=== PATIENT | male | born 1945 | race Caucasian/White ===

== ENCOUNTER 2018-11-03 14:50 | Inpatient (IN) | payer MEDICARE, BC ==
[~2018-11-03 14:50] MED LIST: ISOVUE-370 76%-LOCM 1 ML ONE; MD-Gastroview 120 ML BOT ONE
[2018-11-03 15:17] LABS: #Eosinphils 0.1 thou/uL (0.0-0.7); #Lymphocytes 2.2 thou/uL (1.20-3.40); #Monocytes 1.8 thou/uL (0.11-0.59); %Basophils 0.1 % (0.0-1.0); %Eosinophils 0.4 % (0.0-10.0); %Lymphocytes 13.5 % (21.0-51.0); %Monocytes 11.4 % (0.0-10.0); %Neutrophils 74.7 % (42.0-75.0); Hemoglobin 15.5 g/dL (14.0-18.0); Mean Corpuscular HGB CONC 32.9 g/dL (32.0-36.0); Mean Corpuscular Hemoglobin 29.7 pg (27.0-31.0); Mean Corpuscular Volume 90.1 fL (78.0-98.0); Mean Platelet Volume 7.6 fL (7.4-10.4); Platelet Count 222 thou/uL (130-400); RBC Distribution Width 12.1 % (11.5-14.5); Red Blood Cell (RBC) Count 5.22 mill/uL (4.70-6.10); White Blood Cell (WBC) Count 16.1 thou/uL (4.8-10.8)
[2018-11-03 15:33] LABS: ALT (SGPT) 30 U/L (8-55); AST (SGOT) 22 U/L (5-34); Alkaline Phosphatase 82 U/L (40-150); Anion Gap 16 mmol/L (10-20); BUN (Urea Nitrogen) 18 mg/dL (8.4-25.7); Bilirubin, Total 0.9 mg/dL (0.2-1.2); Calc. Creatinine Clearance 0 mL/min (70-130); Calcium 9.5 mg/dL (7.8-10.44); Carbon Dioxide 29 mmol/L (23-31); Chloride 92 mmol/L (98-107); Estimated GFR-MDRD 82; Globulin 3.6 g/dL (2.4-3.5); Glucose 123 mg/dL (83-110); Potassium 4.1 mmol/L (3.5-5.1); Protein, Total 7.6 g/dL (5.8-8.1); Sodium 133 mmol/L (136-145)
[2018-11-03] MEDS ORDERED: Ketorolac Tromethamine 30 MG/ML VIAL ONE (17:25)
[2018-11-03] MEDS ORDERED: Ondansetron PF 4 MG/2 ML Vial ONE (17:25)
--- NOTE | 2018-11-03 18:40 | CT ---
CONTRAST ENHANCED CT IMAGES ABDOMEN AND PELVIS 11/03/18 HISTORY: Pain. Contrast enhanced CT images of the abdomen and pelvis is obtained after administration of IV contrast . The lung bases are unremarkable. Calcifications seen in the right coronary artery. No evidence of free intraperitoneal air seen. The liver and spleen are unremarkable. The gallbladder and pancreas are unremarkable. There is a right supraumbilical anterior abdominal wall hernia with h erniation of portions of the transverse colon through the defect. The colon distal to this anterior h ernia is decompressed while proximal to it it is dilated and contains fluid. Findings concerning for transverse colonic entrapment. The small bowel appears to be shortened and this finding is compatible with surgical anastomosis and partial resection of the small bowel. There is some moderate proximal small bowel dilatation. There is extensive descending and sigmoid colonic diverticulosis. The patient has had aortobifemoral graft which is patent. The akutan vessel is calcified. Calcificati ons also seen in the celiac and superior mesenteric arteries. Flow is seen in both renal arteries. Nonobstructing calculi seen in the mid pole of the right kidney and lower pole of the left kidney. IMPRESSION: Two areas of anterior abdominal wall defect is seen with hernia. The more upper margin demonstrates herniation of portion of the transverse colon through the hernial defect with proximal small bowel di stention. The more distal aspect of the colon distal to the hernial defect and bowel herniation is d ecompressed. POS: NORRIS
--- NOTE | 2018-11-03 20:53 | RAD ---
GASTROGRAFIN ENEMA: 11/03/18 HISTORY: Evaluate for bowel obstruction. We were asked to perform emergent afterhours gastrografin enema to evaluate for colonic obstruction. RADIATION DOSIMETRY: 1.4 minutes of fluoroscopy. AK of 120 mGy. A balloon tip catheter was placed in the patient's rectum. A solution of gastrografin dilated with wa ter was introduced using a low pressure gravity drip. The rectum and sigmoid colon was filled. The descending colon was filled as was the splenic flexure. Contrast filled all the way to the mid transverse colon and no further. Repeated efforts were made to get the contrast to flow proximal; however, as seen on the patient's CT, there is anterior abdominal wall herniation. Contrast does not flow proximal to this hernial defect. The patient began to compla in of abdominal pain and contrast was noted to leak around the balloon. At this point, the exam was d iscontinued. Numerous colonic diverticula are present in the descending colon and sigmoid colon. IMPRESSION: Transverse colon herniation and obstruction in the mid transverse colonic region. POS: NORRIS
--- NOTE | 2018-11-03 22:01 | CON ---
DATE OF CONSULTATION: 11/03/2018 REQUESTING PHYSICIAN: Dr. Linn Braun. HISTORY OF PRESENT ILLNESS: This is a 72-year-old man with history of severe peripheral vascular disease and previous abdominal operations. The patient presented to the emergency department with a 4-day history of no bowel movement and 2-day history of no flatus. The patient reports moderate abdominal distention. He thinks he had worked hard chopping down trees over the last 1 week as a result. He thinks that his long-standing abdominal wall hernias may have worsened. At the time of my evaluation, he denies any abdominal pain. He denies any nausea or vomiting. The patient denies any alternating episodes of constipation and diarrhea. He denies any hematochezia or melena. He denies any unexplained weight loss. PAST MEDICAL HISTORY: Significant for essential hypertension, hyperlipidemia, coronary artery disease with ejection fraction of approximately 30%. Other pertinent past medical history includes abdominal wall hernia for almost 24 years. PAST SURGICAL HISTORY: Pertinent for aortofemoral bypass 22 years ago. He is also 2 years status post left carotid endarterectomy. FAMILY HISTORY: Noncontributory for this patient's age. ALLERGIES: STATINS. REVIEW OF SYSTEMS: Ten-point review of systems essentially unremarkable except as stated in past medical history and chief complaint. Note, the patient denies having had any previous colonoscopies. PHYSICAL EXAMINATION: GENERAL: This reveals a 72-year-old normally developed man, who is otherwise coherent, interactive and appears stated age. The patient is alert and oriented x3. He appears to be in no acute distress at time of my evaluation. HEENT: Reveals normocephalic and atraumatic. Pupils equal, round, reactive to light and accommodation. Extraocular muscles are intact bilaterally. No sclerae icterus present. Oral mucosa is pink and moist. No lesions are noted. NECK: Supple. No palpable lymphadenopathy or thyromegaly present. HEART: Reveals regular rate and rhythm. LUNGS: Clear to auscultation bilaterally. Breathing, regular and nonlabored. ABDOMEN: Soft and obese. He has multiple abdominal wall defects. The larger defect is in the superior pole left lateral to midline. Palpable, but reducible herniation is present with no tenderness associated with this. Liver and spleen are nonpalpable below costal margin. He has irregularly healed midline incisional scar consistent with previous history of the aortobifemoral bypass. NEUROLOGIC: Reveals no focal deficits present. LABORATORY FINDINGS: Today includes a CBC with 16,100 white blood cells, hemoglobin and hematocrit are 15.5 and 47.0 respectively. Platelet count is 222,000. Metabolic profile; sodium 133, potassium is 4.1, chloride is 92, BUN is 18, creatinine is 0.91, glucose is 123, total bilirubin is 0.9, AST and ALT 22 and 30 respectively. Albumin is normal at 4.0. I have personally reviewed the CT scan of the abdomen and pelvis with IV, but no oral contrast. This is remarkable for extensive diverticulosis coli involving the descending and sigmoid colon. Also noted to anterior abdominal wall defects, the larger of which contains a portion of the transverse colon to the left of midline superiorly with no evidence of complete obstruction. Of interest nevertheless is gas in the rectum. The patient does have multiple distended loops of small bowel with no transition zone noted. IMPRESSIONS: Chronic abdominal wall hernia with likely partial large bowel obstruction, more than likely secondary to chronic diverticular stricture versus neoplasm. RECOMMENDATIONS: 1. We will obtain a Gastrografin enema to better define the anatomy of the obstruction. 2. There is no acute surgical indication for this patient at this time. 3. General Surgery will follow along and make further recommendations as necessary. 4. Above findings and recommendation have been discussed with the patient and his family at bedside. Thank you again, Dr. Braun for allowing me the opportunity to participate in the care of this patient. Job ID: [id number]
[2018-11-04] MEDS: Ketorolac Tromethamine 30 MG/ML VIAL IVP PRN ×2 (00:44→05:46)
[2018-11-04] MEDS ORDERED: Ondansetron PF 4 MG/2 ML Vial IVP PRN (10:10)
[2018-11-04] MEDS ORDERED: Acetaminophen 325 MG TAB PO PRN (10:10)
[2018-11-04] MEDS ORDERED: hydrALAZINE 20 MG/ML VIAL SLOW IVP PRN (10:10)
[2018-11-04] MEDS ORDERED: Ondansetron ODT 4 MG TAB PO PRN (10:10)
[2018-11-04] MEDS ORDERED: Morphine 2 MG/ML SYRINGE SLOW IVP PRN (10:14)
[2018-11-04] MEDS ORDERED: Sodium Chloride 0.9% 1,000 ML IV SCH (10:15)
[2018-11-04] MEDS: Morphine 4 MG/ML VIAL SLOW IVP PRN ×2 (10:17→14:25)
[2018-11-04] MEDS ORDERED: Morphine 4 MG/ML VIAL SLOW IVP SCH (10:30)
[2018-11-04] MEDS ORDERED: Rocuronium Bromide 10 MG/ML (10ML VIAL) ONE (13:13)
[2018-11-04] MEDS ORDERED: PHENYLEPHRINE-NS 100 MCG/ML 10 ML SYRINGE ONE (13:13)
[2018-11-04] MEDS ORDERED: Vecuronium 10 MG VIAL ONE (13:13)
[2018-11-04] MEDS ORDERED: PROPOFOL 200 MG/20 ML VIAL ONE (13:13)
[2018-11-04] MEDS ORDERED: Lidocaine 1% PF 5 ML VIAL ONE (13:13)
[2018-11-04] MEDS ORDERED: Ketorolac Tromethamine 30 MG/ML VIAL ONE (16:12)
--- NOTE | 2018-11-04 17:01 | HP ---
PRIMARY CARE PHYSICIAN: The patient's does not have a primary care physician. CHIEF COMPLAINT: Abdominal pain and bloating. 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 He says that he was in his usual state of health until about a week ago. He says on last Tuesday every time he ate, he would notice bloating and an increased amount of gas. This would go on for several hours and then it would get better. However, as the days went on, his symptoms worsen and he would try take Ex-Lax without any improvement, then basically he stopped eating almost altogether. He says he also noted some abdominal pain, which would come and go. It would be across his abdomen in the lower part and then radiating to the upper part of his abdomen. He says sometimes it can be as little as 1/10, but then up to 8 to 9/10. He had some nausea, but no vomiting, and as a result of the worsening pain, he came to the ER for evaluation. He had a CT scan of the abdomen, which showed some changes of possible hernia and within the transverse colon with possible obstruction. This is the reason he is being admitted. He says that he believes he just strained the area around this hernia because he had cut down a tree and chopped it up and loaded it up on a truck on the day prior to his symptoms starting. He says his last bowel movement was on Tuesday. It was formed hard stool. There was no blood and he denies having any vomiting. He denies any chest pain or difficulty breathing. He denies any PND or orthopnea. He says he has relatively good exercise tolerance. REVIEW OF SYSTEMS: All systems were reviewed and are negative except for that mentioned in the history of present illness. PAST MEDICAL HISTORY: Significant for hypertension, hyperlipidemia, coronary artery disease. He is status post [place] and history of chronic systolic heart failure. PAST SURGICAL HISTORY: He has had a left carotid endarterectomy as well as an aortofemoral bypass. ALLERGIES: EGG YOLKS WELL SIMVASTATIN, BUT HE SAYS HE CAN TAKE OTHER STATINS. FAMILY HISTORY: Significant for diabetes and coronary artery disease in his father. SOCIAL HISTORY: He is a nonsmoker and nondrinker. Code status is full code. CURRENT MEDICATIONS: 1. Carvedilol 25 mg twice a day. 2. Irbesartan 300 mg daily. 3. Aspirin 325 mg daily. 4. Hydrochlorothiazide 12.5 mg daily. 5. Crestor 20 mg daily. PHYSICAL EXAMINATION: GENERAL: He is alert and oriented. He appears to be in no acute distress. He is well developed and well nourished. VITAL SIGNS: Blood pressure was 103/63, heart rate 68, respiratory rate of 16, temperature is 99, and O2 saturation is 92% on room air. HEENT: Pupils are equal, round, and reactive. Extraocular muscles are intact. His sclerae anicteric. Throat, no erythema, no exudates. NECK: No adenopathy. No bruits. LUNGS: Clear to auscultation. There is no wheezing or rales. No rhonchi. CARDIOVASCULAR: He has a normal S1 and S2. I did not appreciate an S3 or S4. No murmurs, clicks or rubs. ABDOMEN: Soft. He does have some lower abdominal tenderness as well as some tenderness around the hernia site. The hernia is easily reducible. He has positive bowel sounds. No rebound or guarding. EXTREMITIES: There is no clubbing or cyanosis. No edema. NEUROLOGIC: Cranial nerves 2 through 12 are grossly intact. His muscle strength is 5/5 in both his upper and lower extremities. SKIN AND INTEGUMENT: There are no skin changes. No rash. LABORATORY DATA: Sodium is 133, potassium 4.1, chloride is 92, CO2 is 29, BUN of 18, creatinine 0.91, glucose is 123. White blood cell count 16.1, hemoglobin 15.5, hematocrit is 47.0, and platelet count was 222. ASSESSMENT: This is a gentleman, who presents with a possible bowel obstruction in the transverse colon. He is being placed in observation. He will be made n.p.o. General Surgery has already been consulted, and we will place him on IV fluids. Place him on medication for pain. 1. For history of hypertension, we will place him on p.r.n. medications for hypertension until he has been cleared for oral intake. 2. Coronary artery disease. This appears to be clinically stable. We will likely need to get a baseline EKG if he has not had this done already in the ER, and restart his home medications when able. Job ID: [id number]
[2018-11-04] MEDS ORDERED: Morphine 4 MG/ML VIAL ONE (18:25)
[2018-11-04] MEDS ORDERED: cefOXitin 2 GM in Sodium Chloride 0.9% 100 ML IVPB SCH (19:30)
[2018-11-04] MEDS ORDERED: Fentanyl 100 MCG/2 ML VIAL ONE (21:06)
[2018-11-04] MEDS: Famotidine 20 MG TAB PO SCH (21:15)
--- NOTE | 2018-11-04 21:46 | CON ---
DATE OF CONSULTATION: HISTORY: Esvin Scott is a 72-year-old white male, who is a longstanding patient of Dr. Anderson. In 02/1997, while he was visiting in [place], he had an inferior myocardial infarction. He underwent cardiac catheterization at [facility]. Both iliacs were totally occluded and the procedure had to be performed via right brachial artery. He was found to have luminal irregularities in the LAD and in the circumflex. The right coronary artery had an 80% stenosis with MARTÍNEZ-2.5-3.0 flow. PTCA was not performed due to good MARTÍNEZ flow and there being no femoral access. Ejection fraction was 50% with inferior wall hypokinesis. Prior to discharge, he underwent a submaximal exercise test, exercised for 3 minutes. He then returned to [facility] in 04/1997. He underwent aortobifemoral bypass with reimplantation of the internal mammary artery. There was a fall in his ejection fraction to below 35% and thought was given to ICD placement. He then underwent electrophysiology study by Dr. Joes Correa. This revealed normal sinus node, AV node, and His-Purkinje system function. He had no inducible supraventricular tachycardia nor inducible sustained monomorphic ventricular tachycardia. Subsequently, his ejection fraction has improved to 35% to 40%, and that was on his last echo in 04/2017. He also underwent left carotid endarterectomy in 09/[address] Garcia. Mr. Scott denies any chest discomfort or shortness of breath. He can walk on a treadmill for up to 1 mile. 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 He thinks that this activity worsened his abdominal hernias because he started having abdominal pain. He did not had any bowel movements, but denies any nausea or vomiting. It is felt that he needs to undergo surgical repair of his hernias. He denies any PND, orthopnea, or leg edema. PAST MEDICAL HISTORY: 1. Hypertension. 2. Hypercholesterolemia. 3. Ischemic cardiomyopathy. OPERATIONS: 1. Aortobifemoral bypass with reimplantation of the KARUNA. 2. Left carotid endarterectomy. OUTPATIENT MEDICATIONS: Include; 1. Aspirin 81 daily. 2. Carvedilol 25 mg b.i.d. 3. Vitamin D3. 4. Hydrochlorothiazide 12.5 daily. 5. Avapro 300 mg nightly. 6. Crestor 20 mg nightly. 7. CoQ10 of 100 mg daily. 8. Multivitamin. ALLERGIES: STATINS. SOCIAL HISTORY: He smoked 1 to 1-1/2 packs per day, but stopped in 1996 at the time of his myocardial infarction. He rarely drinks. FAMILY HISTORY: Father had coronary artery disease. REVIEW OF SYSTEMS: A 10-point review of systems is otherwise unremarkable. PHYSICAL EXAMINATION: VITAL SIGNS: Blood pressure 97/56, pulse of 69. HEENT: PERRL. NECK: Supple. CHEST: Clear. CARDIAC: S1 and S2 are normal without any S3, S4, or murmurs. ABDOMEN: Normal bowel sounds with mild diffuse tenderness. EXTREMITIES: No clubbing, cyanosis, or edema. NEUROLOGIC: Grossly intact. SKIN: Warm and dry. LABORATORY DATA: EKG revealed normal sinus rhythm with inferior wall infarction. Hemoglobin 15.5, hematocrit 47.0, white count 16,100. Sodium 133, potassium 4.1 , chloride 92, carbon dioxide 29, BUN 18, and creatinine 0.91. ASSESSMENT: 1. Abdominal wall hernias with partial large-bowel obstruction. 2. History of inferior myocardial infarction in 1996. 3. Peripheral vascular disease - status post aortobifemoral bypass in 1996 and left carotid endarterectomy in 2017. 4. Hypercholesterolemia. 5. Hypertension. 6. Former smoker. 7. Positive family history. PLAN: Mr. Scott appears to be stable from a cardiac standpoint at this time. He is able to walk 1 mile without symptoms. With his coronary artery disease, he certainly is at increased risks with general anesthesia; however, I feel that these risks were very acceptable, especially with ongoing abdominal pain and large- bowel obstruction. We will follow the patient with you. Job ID: [id number] [facility]
[2018-11-04] MEDS ORDERED: Bupivacaine/Epinephrine 0.25% 30 ML VIAL ONE (21:58)
[2018-11-04] MEDS ORDERED: Norepinephrine 8 MG/0.9% NS 250 ML ONE (22:57)
[2018-11-04] MEDS ORDERED: Albumin 5% 500 ML ONE (23:05)
[2018-11-05] MEDS ORDERED: Dextrose 50% Abboject 50 ML SYRINGE ONE (00:28)
[2018-11-05 03:35] LABS: Actual Bicarbonate (HCO3a) 21.3 mEq/L (22-28); Base Excess (BEa) -2.7 mEq/L (-2.0 to +3.0); CO2 Tension 34.2 mmHg (35.0-45.0); Calcium, Ionized 1.02 mmol/L (1.12-1.30); Carboxyhemoglobin (COHb) 0.9 gm% (0.0-3.0); Hemoglobin (Hb) 12.2 g/dL (14.0-18.0); O2 Tension (PaO2) 148.7 mmHg (> 70.0); Potassium - ABG Lab 4.32 mmol/L (3.70-5.30); pH, Arterial 7.41 (7.35-7.45)
[2018-11-05 03:37] LABS: Puncture Site ALINE
[2018-11-05] MEDS ORDERED: Propofol 1,000 MG/100 ML VIAL IV ONE (03:41)
[2018-11-05] MEDS ORDERED: Ventilator Sedation Protocol 1 EACH FS SCH (03:45)
[2018-11-05] MEDS: Lactated Ringer's 1,000 ML IV SCH ×3 (03:49→23:09)
--- NOTE | 2018-11-05 03:53 | OP ---
DATE OF PROCEDURE: 11/05/2018 PREOPERATIVE DIAGNOSIS: Incarcerated incisional hernia with large bowel obstruction. POSTOPERATIVE DIAGNOSES: 1. Incarcerated incisional hernia with large bowel obstruction. 2. Necrotic transverse colon and cecum. 3. Extensive intraabdominal adhesions. TEST PERFORMED: 1. Exploratory laparotomy. 2. Extensive adhesiolysis. 3. Right hemicolectomy with primary anastomosis. 4. Repair of incisional hernia. 5. Placement of feeding nasojejunal tube. 6. Placement of a triple-lumen left subclavian central venous catheter. ANESTHESIA: General endotracheal. ESTIMATED BLOOD LOSS: 200 mL. FLUIDS: Given 4000 mL crystalloids and 500 mL of 5% albumin. COUNTS: Sponge and instrument counts were verified as correct x2. COMPLICATIONS: None apparent at the time of operation. INDICATIONS FOR OPERATION: A 72-year-old man with previous history of aortobifemoral bypass many years ago, presented with abdominal pain, inability to have bowel movement and worsening abdominal distention. Clinical and radiographic examination were consistent with acute incarcerated ventral incisional hernia with entrapment of segment of the transverse colon. Patient was brought to the operating room for exploration and repair of said hernia. Findings are consistent with extensive intraabdominal adhesions, threaded transverse colon with patchy necrosis as well as ischemic markedly dilated cecum. DESCRIPTION OF PROCEDURE: Informed consent obtained from the patient. He was brought to the operating room and placed in supine position. Following general anesthesia, a Talbot catheter was inserted and placed to bedside drain. Nasogastric tube inserted and placed to wall suction. The left chest wall sterilely prepped and draped in usual fashion. The left subclavian vein was cannulated with an 18-gauge introducer needle returning dark venous blood. Guidewire was passed through the needle and advanced into the left subclavian vein without resistance. Needle was withdrawn over the guidewire. A stab incision was made adjacent to the guidewire using 11 scalpel. Dilator was passed over the guidewire dilating the subcutaneous tissues. The dilator was removed and replaced with a triple-lumen central venous catheter which was advanced over the guidewire and placed in the left subclavian vein without resistance and stopping at the 18 cm brian. Guidewire was removed. Dark venous blood was aspirated from all three ports which were individually flushed with saline. The catheter was secured to anterior chest wall using 3-0 silk suture at two points. Biopatch and sterile dressings was applied. Attention was then directed to the abdomen, which was sterilely prepped and draped in usual fashion. Midline incision was made using #10 scalpel. Incision was carried through subcutaneous tissues maintaining hemostasis using cautery. The large hernia in the left of midline was noted and dissected free from angoon fascia circumferentially. The hernia sac was opened and an incarcerated transverse colon was meticulously taken down. There is a 2 x 1 cm area of patch necrosis in this segment. We were then able to continue our dissection encountering extensive intraabdominal adhesions which were meticulously taken down using Metzenbaum scissors. The small bowel was then run from ligament of Treitz down to terminal ileum. A markedly dilated and ischemic-appearing cecum was encountered. The ascending colon remains markedly dilated to just proximal to the incarcerated transverse colonic segment. The remainder of the transverse colon distal to this appeared viable. I palpated the remainder of the colon from the splenic flexure down to the descending, sigmoid colon, and rectum. No other pathology is identified. I decided to proceed with right hemicolectomy. To achieve this, a rent was created in the mesentery of the distal ileum approximately 6 cm from the ileocecal junction. This was completed using hemostats. Through this rent, a KETAN stapler was introduced and the bowel was divided. Mesenteric rent was also created approximately 6 cm distal to the incarcerated transverse colon. Through the defect, a KETAN stapler was introduced and the bowel was divided here as well. The right colon was then mobilized along the white line of Toldt, taken down the hepatic flexure. Care taken to avoid injury to underlying duodenum as the colon was mobilized medially. Mesentery of the right colonic specimen was then serially divided using LigaSure device with good hemostasis. The specimen was passed off the operative field followed by transmission to pathology. Liver is palpated, free of any abnormalities. Markedly distended gallbladder is devoid of stones. The spleen and hepatic noted in the usual anatomic location. The previous nasogastric tube was palpated within the gastric lumen. At this juncture, a feeding nasojejunal tube was inserted by Anesthesia, the tip of which was palpated by myself within the gastric lumen. I manipulated tip of this catheter into proximal small bowel without resistance. The abdominal cavity was then copiously irrigated clear with saline. I decided to proceed with the reestablishment of bowel continuity. The staple end of the distal ileum and left colon were approximated in a [id number] antimesenteric border using interrupted sutures of 3-0 silk. Enterotomies were made at both apices, through which free ends of KETAN stapler were introduced and functional end-to-end but anatomic [id number] ileocolostomy was perfected. The common enterotomies were closed using KETAN stapler. Resultant mesenteric defect closed using a running stitch of 2-0 Vicryl. The abdominal cavity was again re-irrigated until it was clear. At this juncture, all sponges and instruments were reported as correct x2. I placed a sheet of Seprafilm in the deep pelvis prior to returning the small bowel to normal anatomic location. A second sheet of Seprafilm was placed over the remainder of the small bowel and omentum is drawn over this. I then turned my attention to the defective edges of the patient's angoon fascia. This was excised circumferentially down to a viable fascia. The hernia subcutaneous pocket was copiously irrigated clear with saline, debriding nonviable subcutaneous fat as they were encountered. Given the patient was concerned about mesh repair and in addition to the fact that colonic resection had taken place, I elected to repair the ventral incisional hernia primarily avoiding the use of mesh. At this juncture, the angoon fascia was approximated in the midline using a running stitch of #1 single stranded PDS. Subcutaneous tissue was irrigated clear with saline solution noting good hemostasis in place. I introduced a 10 flat Claudio-Keen drain into the large subcutaneous pocket created by the previous hernia. The drain was allowed to exit the anterior abdominal wall through a separate stab incision. The drain was secured to anterior abdominal wall using 2-0 silk suture. Subcutaneous tissue was approximated at midline using interrupted sutures of 2-0 Vicryl. Skin was closed using val. Sterile dressings were applied. Patient tolerated the operation without any apparent complication and was returned to recovery room in satisfactory condition. Job ID: [id number] [facility]
[2018-11-05] MEDS ORDERED: fentaNYL Citrate/PF 2,000 MCG in Sodium Chloride 0.9% 60 ML IV SCH (04:31)
[2018-11-05] MEDS ORDERED: Fentanyl BOLUS 250 ML IVPB PRN (04:31)
[2018-11-05] MEDS ORDERED: DISCONTINUE PREVIOUS NARCOTIC PAIN MEDICATIONS AND BENZODIAZEPINES FS SCH (04:31)
[2018-11-05] MEDS ORDERED: Propofol 1,000 MG/100 ML VIAL IV PRN (04:31)
[2018-11-05] MEDS ORDERED: Propofol BOLUS 1,000 MG/100 ML VIAL IV PRN (04:31)
[2018-11-05] MEDS ORDERED: Lorazepam 2 MG/ML VIAL SLOW IVP PRN (04:31)
[2018-11-05] MEDS ORDERED: Morphine 2 MG/ML SYRINGE SLOW IVP PRN (04:31)
[2018-11-05 05:28] LABS: #Lymphocytes 1.1 thou/uL (1.20-3.40); #Monocytes 0.9 thou/uL (0.11-0.59); #Neutrophils 16.6 thou/uL (1.40-6.50); %Eosinophils 0.1 % (0.0-10.0); %Lymphocytes 5.7 % (21.0-51.0); %Neutrophils 89.3 % (42.0-75.0); Hemoglobin 11.6 g/dL (14.0-18.0); Mean Corpuscular Hemoglobin 29.7 pg (27.0-31.0); Mean Corpuscular Volume 89.8 fL (78.0-98.0); Mean Platelet Volume 7.6 fL (7.4-10.4); Platelet Count 155 thou/uL (130-400); Red Blood Cell (RBC) Count 3.91 mill/uL (4.70-6.10); White Blood Cell (WBC) Count 18.6 thou/uL (4.8-10.8)
[2018-11-05] MEDS: Piperacillin/Tazobactam 3.375 GM in Sodium Chloride 0.9% 100 ML IVPB SCH ×4 (05:29→23:10)
[2018-11-05 05:42] LABS: Anion Gap 10 mmol/L (10-20); BUN (Urea Nitrogen) 28 mg/dL (8.4-25.7); Calc. Creatinine Clearance 93 mL/min (70-130); Calcium 7.8 mg/dL (7.8-10.44); Carbon Dioxide 26 mmol/L (23-31); Chloride 100 mmol/L (98-107); Estimated GFR-MDRD Greater than 90; Glucose 162 mg/dL (83-110); Potassium 4.2 mmol/L (3.5-5.1); Sodium 132 mmol/L (136-145)
[2018-11-05] MEDS: Enoxaparin Sodium 40 MG/0.4 ML SYRINGE SC SCH (07:40)
[2018-11-05] MEDS: Famotidine 20 MG TAB PO SCH ×2 (07:41→20:16)
--- NOTE | 2018-11-05 08:45 | RAD ---
Exam: Chest one view HISTORY:Evaluate feeding tube placement FINDINGS: Lungs: Bilateral patchy perihilar opacities Dobbhoff feeding tube placement evaluation feeding tube and enteric catheter traverse to the upper ab domen, below field of view Cardiac silhouette:Accentuated by portable technique Pulmonary vessels: Normal Pleural Spaces: Clear Pneumothorax: None Left subclavian venous catheter is present with tip overlying SVC. Osseous abnormalities: None of acuity. IMPRESSION: Enteric catheters traversing to the upper abdomen, below field of view
[2018-11-05] MEDS ORDERED: Enoxaparin Sodium 30 MG/0.3 ML SYRINGE SC SCH (09:00)
--- NOTE | 2018-11-05 09:53 | RAD ---
FRONTAL VIEW ABDOMEN SERIES KUB TWO VIEWS PROVIDED: INDICATION: Dobbhoff feeding tube placement evaluation. FINDINGS: There is an enteric catheter with tip traversing to the left lateral abdomen. Additional catheter tr averses to the right upper abdomen. On the more cephalad view of the abdomen, there is a linear radi opaque density overlying the central low abdomen, not redemonstrated on the lower abdominal view. Th is could have related to overlying artifact. Correlate clinically. IMPRESSION: Two catheters are seen, a Dobbhoff with metallic stylette traversing to the left lateral abdomen and the additional enteric catheter traverses through the right upper quadrant. POS: AUTUMNK
--- NOTE | 2018-11-05 10:58 | PDOC.PN ---
- Subjective Encounter Start Date: 11/05/18 Encounter Start Time: 10:57 Mr. Scott was seen today in follow-up of Bowel Obstruction. He is post exploratory lap and lysis of adhesions, with right hemicolectomy. He remains intubated. He is awake and alert. - Objective Resuscitation Status - Order Detail: 11/04/18 09:59 Resuscitation Status Routine Resuscitation Status: FULL: Full Resuscitation MAR Reviewed: Yes Vital Signs & Weight: Vital Signs (12 hours) Temp Pulse Resp BP Pulse Ox 11/05/18 10:31 71 147/56 H 11/05/18 10:25 68 138/61 11/05/18 09:06 14 11/05/18 07:00 98.9 F 11/05/18 06:58 14 99 11/05/18 06:15 64 131/47 L 11/05/18 06:00 14 11/05/18 04:00 14 11/05/18 03:52 99 11/05/18 03:38 65 11/05/18 03:07 14 11/05/18 03:00 98.3 F Weight Weight 171 lb 15.369 oz Most Recent Monitor Data Heart Rate from ECG 70 NIBP 138/61 NIBP BP-Mean 86 Respiration from ECG 15 SpO2 100 I&O: 11/04/18 11/05/18 11/06/18 06:59 06:59 06:59 Intake Total 10 715.4 100 Output Total 560 250 Balance 10 155.4 -150 Result Diagrams: 11/05/18 05:10 11/05/18 05:10 Additional Labs: Accuchecks 11/05/18 00:27 POC Glucose 62 L Phys Exam - Physical Examination HEENT: PERRLA, sclera anicteric Respiratory: no wheezing, no rales, no rhonchi, clear to auscultation bilateral Cardiovascular: RRR, no significant murmur, no rub Gastrointestinal: soft + mildly distended, bowel sounds are diminished Musculoskeletal: pulses present trace pedal edema Dx/Plan (1) Bowel obstruction Code(s): K56.609 - UNSP INTESTNL OBST, UNSP TO PARTIAL VERSUS COMPLETE OBST Status: Acute (2) Incarcerated hernia Code(s): K46.0 - UNSP ABDOMINAL HERNIA WITH OBSTRUCTION, WITHOUT GANGRENE Status: Acute (3) Hypertension Code(s): I10 - ESSENTIAL (PRIMARY) HYPERTENSION Status: Chronic (4) Coronary artery disease Code(s): I25.10 - ATHSCL HEART DISEASE OF [place] CORONARY ARTERY W/O ANG PCTRS Status: Chronic - Plan * Incarcerated Hernia with bowel obstruction- he is s/p exploratory lap with lysis of adhesions, and right rachel-colectomy * Continue Zosyn * Vent wean per Surgery * HTN- blood pressure is currently controlled * CAD- stable- Cardiology following.
[2018-11-05] MEDS ORDERED: traMADol HCl 50 MG TAB PO PRN (11:39)
[2018-11-05] MEDS ORDERED: traMADol HCl 50 MG TAB PO SCH (11:45)
[2018-11-05] MEDS ORDERED: Ibuprofen 600 MG TAB PO SCH (11:45)
--- NOTE | 2018-11-05 12:33 | RAD ---
XR Abdomen 1 View/KUB 1 view abdomen series CLINICAL INDICATION: NG tube placement evaluation. FINDINGS: Redemonstration of enteric catheters, with metallic stylette at the left lateral abdomen, and additio nal catheter traversing to the medial left upper quadrant. There is additional catheter tubing overlying the left lower quadrant. Correlate clinically. IMPRESSION: 1. Two enteric catheters, one traversing to the lateral left upper abdomen, and the other residing a t the medial left upper abdomen. 2. There is additional catheter tubing overlying the left lower quadrant.. Transcribed Date/Time: 11/05/2018 1:01 PM
[2018-11-05] MEDS: Ketorolac Tromethamine 30 MG/ML VIAL IVP PRN ×2 (12:57→19:15)
[2018-11-05] MEDS: Acetaminophen 500 MG TAB PO SCH ×3 (13:01→23:09)
[2018-11-05] MEDS: Metoprolol Tartrate 5 MG/5 ML VIAL IVP SCH ×2 (15:54→22:21)
[2018-11-05] MEDS ORDERED: Digoxin 0.5 MG/2 ML AMP ONE (16:49)
[2018-11-05] MEDS ORDERED: Digoxin 0.5 MG/2 ML AMP SLOW IVP SCH ×2 (17:15→21:00)
[2018-11-05] MEDS ORDERED: Hydrocortisone Sod Succ/PF 100 mg/2 ml Vial IVP SCH (20:00)
[2018-11-05] MEDS ORDERED: Sodium Chloride 0.9% 500 ML IVPB SCH (21:45)
[2018-11-06] MEDS ORDERED: Sodium Chloride 0.9% 500 ML IV SCH ×2 (01:15→08:45)
[2018-11-06] MEDS: Hydrocortisone Sod Succ/PF 100 mg/2 ml Vial IVP SCH ×4 (01:17→20:07)
[2018-11-06] MEDS: Metoprolol Tartrate 5 MG/5 ML VIAL IVP SCH ×4 (05:02→21:44)
[2018-11-06] MEDS ORDERED: Hydrochlorothiazide 25 MG TAB PO SCH (05:15)
[2018-11-06] MEDS: Ketorolac Tromethamine 30 MG/ML VIAL IVP PRN ×3 (05:19→20:10)
[2018-11-06] MEDS: Piperacillin/Tazobactam 3.375 GM in Sodium Chloride 0.9% 100 ML IVPB SCH ×3 (05:19→17:58)
[2018-11-06] MEDS: Acetaminophen 500 MG TAB PO SCH ×3 (05:20→17:58)
[2018-11-06 05:38] LABS: Phosphorus 2.9 mg/dL (2.3-4.7)
[2018-11-06 08:17] LABS: Hemoglobin 11.4 g/dL (14.0-18.0); Mean Corpuscular HGB CONC 32.6 g/dL (32.0-36.0); Mean Corpuscular Hemoglobin 29.8 pg (27.0-31.0); Mean Corpuscular Volume 91.5 fL (78.0-98.0); Mean Platelet Volume 7.9 fL (7.4-10.4); Platelet Count 171 thou/uL (130-400); RBC Distribution Width 12.1 % (11.5-14.5); Red Blood Cell (RBC) Count 3.82 mill/uL (4.70-6.10); White Blood Cell (WBC) Count 17.4 thou/uL (4.8-10.8)
[2018-11-06 08:23] LABS: Anion Gap 9 mmol/L (10-20); BUN (Urea Nitrogen) 23 mg/dL (8.4-25.7); Calc. Creatinine Clearance 97 mL/min (70-130); Calcium 7.8 mg/dL (7.8-10.44); Carbon Dioxide 29 mmol/L (23-31); Chloride 103 mmol/L (98-107); Estimated GFR-MDRD Greater than 90; Glucose 138 mg/dL (83-110); Sodium 137 mmol/L (136-145)
--- NOTE | 2018-11-06 08:42 | PDOC.PN ---
- Subjective Encounter Start Date: 11/06/18 Encounter Start Time: 08:40 Mr. Scott was seen today in follow-up of Bowel Obstruction. He says he has some abdominal pain, but it is manageable. he denies chest pain or shortness of breath. - Objective Resuscitation Status - Order Detail: 11/04/18 09:59 Resuscitation Status Routine Resuscitation Status: FULL: Full Resuscitation MAR Reviewed: Yes Vital Signs & Weight: Vital Signs (12 hours) Temp 11/06/18 03:00 98.3 F 11/05/18 23:00 98.5 F Weight Weight 181 lb 14.102 oz Most Recent Monitor Data Heart Rate from ECG 66 NIBP 128/52 NIBP BP-Mean 77 Respiration from ECG 15 SpO2 93 I&O: 11/05/18 11/06/18 11/07/18 06:59 06:59 06:59 Intake Total 715.4 3027 Output Total 560 1953 Balance 155.4 1074 Result Diagrams: 11/06/18 07:42 11/06/18 07:42 Additional Labs: Accuchecks 11/05/18 01:39 POC Glucose 177 H Phys Exam - Physical Examination HEENT: PERRLA Respiratory: no wheezing, no rales, no rhonchi, clear to auscultation bilateral Cardiovascular: RRR, no significant murmur, no rub Gastrointestinal: soft, no distention BS absent Musculoskeletal: no edema, pulses present Dx/Plan (1) Bowel obstruction Code(s): K56.609 - UNSP INTESTNL OBST, UNSP TO PARTIAL VERSUS COMPLETE OBST Status: Acute (2) Incarcerated hernia Code(s): K46.0 - UNSP ABDOMINAL HERNIA WITH OBSTRUCTION, WITHOUT GANGRENE Status: Acute (3) Hypertension Code(s): I10 - ESSENTIAL (PRIMARY) HYPERTENSION Status: Chronic (4) Coronary artery disease Code(s): I25.10 - ATHSCL HEART DISEASE OF [place] CORONARY ARTERY W/O ANG PCTRS Status: Chronic - Plan * Large Bowel Obstruction due to Incarcerated Ventral Hernia- s/p exploratory lap and lysis of adhesions- awaiting return of bowel function * Continue NG tube and NPO for now * CAD- stable * HTN- blood pressure has been normal * He has decreased urine output- he may be a bit dry- will give a 500ml Saline bolus and monitor * Hopefully out of the ICU later today.
[2018-11-06] MEDS ORDERED: DOPamine 400 MG/D5W 250 ML 250 ML IVPB SCH (08:45)
[2018-11-06] MEDS: Enoxaparin Sodium 40 MG/0.4 ML SYRINGE SC SCH (08:46)
[2018-11-06] MEDS: Famotidine 20 MG TAB PO SCH ×2 (08:46→20:07)
--- NOTE | 2018-11-06 09:57 | PRG ---
DATE OF SERVICE: 11/06/2018 SUBJECTIVE: Mr. Scott is doing somewhat better today. He is receiving very low infusion rate and NG feeds. He is not having chest pain or pressure. He is in normal sinus rhythm. OBJECTIVE: VITAL SIGNS: The blood pressure 128/52 and earlier was 98/48 and pulse is 70 and sinus. LUNGS: Clear. CARDIAC: Normal S1 and normal S2. ABDOMEN: Postoperative status, does not appear to be distended. EXTREMITIES: Warm and dry. ASSESSMENT: 1. Postoperative status for small bowel obstruction. 2. Coronary artery disease appears stable. 3. Paroxysmal atrial fibrillation, maintained sinus rhythm. 4. Magnesium level is 2. PLAN: Continue supportive care. Agree with the fluid boluses. His creatinine is stable. We will hold off his dopamine for now in view of history of atrial fibrillation. Job ID: [id number]
[2018-11-06] MEDS: Lactated Ringer's 1,000 ML IV SCH ×2 (10:12→14:27)
[2018-11-06] MEDS: Morphine 4 MG/ML VIAL SLOW IVP PRN (10:13)
[2018-11-06 10:17] LABS: Band 28 % (5-11); Lymphocytes 2 % (21-51); MDiff Complete? YES; Monocytes 2 % (0-10); Neutrophil 68 % (42-75); Platelet Morphology Comment Appears Adequate; Polychromasia SLIGHT = 2-3 cells (100X) (0-2/hpf)
[2018-11-06] MEDS ORDERED: Morphine 2 MG/ML SYRINGE SLOW IVP PRN ×3 (10:17→22:19)
[2018-11-06 15:29] LABS: Actual Bicarbonate (HCO3a) 21.7 mEq/L (22-28); Analyzer IN Cardio OR; Base Excess (BEa) -1.6 mEq/L (-2.0 to +3.0); CO2 Tension 31.8 mmHg (35.0-45.0); Calcium, Ionized 1.03 mmol/L (1.12-1.30); Carboxyhemoglobin (COHb) 0.5 gm% (0.0-3.0); Hemoglobin (Hb) 11.3 g/dL (14.0-18.0); Potassium - ABG Lab 4.02 mmol/L (3.70-5.30); pH, Arterial 7.45 (7.35-7.45)
[2018-11-06 15:39] LABS: Puncture Site ALINE
[2018-11-06 15:45] LABS: Anion Gap 10 mmol/L (10-20); BUN (Urea Nitrogen) 26 mg/dL (8.4-25.7); Calc. Creatinine Clearance 96 mL/min (70-130); Calcium 7.6 mg/dL (7.8-10.44); Carbon Dioxide 27 mmol/L (23-31); Chloride 105 mmol/L (98-107); Estimated GFR-MDRD Greater than 90; Glucose 125 mg/dL (83-110); Potassium 4.1 mmol/L (3.5-5.1); Sodium 138 mmol/L (136-145)
--- NOTE | 2018-11-06 19:10 | PRG ---
DATE OF SERVICE: 11/06/2018 SUBJECTIVE: This is a 72-year-old gentleman postop day #2 exploratory laparotomy with right hemicolectomy with primary anastomosis. The patient also had a nasal-jejunum feeding tube placed. The patient is awake and alert today. The patient reports his pain is well controlled. The patient did have decreased urine output overnight. The patient was given IV fluids. The patient also has a HERMELINDO drain with 10 mL output. OBJECTIVE: VITAL SIGNS: Temperature 98.2, pulse 66, blood pressure 128/52, respirations 15, and SpO2 of 94% on room air. GENERAL: The patient is awake and alert, in no distress. HEENT: Normocephalic and atraumatic. HEART: Regular rate and rhythm. LUNGS: Clear bilateral, breathing is regular and nonlabored. ABDOMEN: Soft, nontender, nondistended. Dressing clean, dry, and intact. NEUROLOGIC: No focal deficits. LABORATORY DATA: WBC 17.4, RBC 3.82, hemoglobin 11.4, hematocrit 35.0, bands 28. Sodium 137, potassium 4.0, chloride 103, CO2 of 29, BUN 23, creatinine 0.79, estimated GFR 90, glucose 138, calcium 7.8, phosphorus 2.9, magnesium 2.0. BNP 442. DIAGNOSTICS DATA: There is no diagnostics to review today. IMPRESSION: 1. Status post day #2 exploratory laparotomy, right hemicolectomy with primary anastomosis. 2. Placement of nasal-jejunum tube. 3. History of hypertension and coronary artery disease with ejection fraction of 30%. PLAN: We will continue supportive care. We will continue pain regimen. We will monitor the patient's resuscitation and urinary output. We will place the patient on a low-dose dopamine to maintain a MAP greater than 70. The patient was examined with Dr. Bearden, who agrees. Job ID: [id number]
[2018-11-06] MEDS ORDERED: Ventilator Sedation Protocol 1 EACH FS SCH (22:14)
[2018-11-06] MEDS ORDERED: Fentanyl 100 MCG/2 ML VIAL SLOW IVP SCH (22:15)
[2018-11-06] MEDS ORDERED: Fentanyl BOLUS 250 ML IVPB PRN (22:19)
[2018-11-06] MEDS ORDERED: DISCONTINUE PREVIOUS NARCOTIC PAIN MEDICATIONS AND BENZODIAZEPINES FS SCH (22:19)
[2018-11-06] MEDS ORDERED: Lorazepam 2 MG/ML VIAL SLOW IVP PRN (22:19)
[2018-11-06] MEDS ORDERED: Propofol 1,000 MG/100 ML VIAL IV PRN (22:19)
[2018-11-06] MEDS ORDERED: Propofol BOLUS 1,000 MG/100 ML VIAL IV PRN (22:19)
[2018-11-06] MEDS ORDERED: fentaNYL Citrate/PF 2,000 MCG in Sodium Chloride 0.9% 60 ML IV SCH (22:19)
[2018-11-07] MEDS: Piperacillin/Tazobactam 3.375 GM in Sodium Chloride 0.9% 100 ML IVPB SCH ×2 (00:12→06:04)
[2018-11-07] MEDS: Acetaminophen 500 MG TAB PO SCH ×4 (00:13→18:15)
[2018-11-07] MEDS: Hydrocortisone Sod Succ/PF 100 mg/2 ml Vial IVP SCH ×3 (02:36→20:18)
[2018-11-07] MEDS: Lactated Ringer's 1,000 ML IV SCH ×2 (03:00→18:08)
[2018-11-07] MEDS: Metoprolol Tartrate 5 MG/5 ML VIAL IVP SCH ×4 (03:01→22:11)
[2018-11-07] MEDS: Ketorolac Tromethamine 30 MG/ML VIAL IVP PRN ×2 (03:07→20:21)
[2018-11-07 04:51] LABS: #Monocytes 0.8 thou/uL (0.11-0.59); #Neutrophils 12.2 thou/uL (1.40-6.50); %Basophils 0.1 % (0.0-1.0); %Eosinophils 0.3 % (0.0-10.0); %Lymphocytes 7.1 % (21.0-51.0); %Monocytes 5.8 % (0.0-10.0); %Neutrophils 86.7 % (42.0-75.0); Mean Corpuscular HGB CONC 32.4 g/dL (32.0-36.0); Mean Corpuscular Hemoglobin 29.8 pg (27.0-31.0); Mean Corpuscular Volume 91.9 fL (78.0-98.0); Mean Platelet Volume 8.1 fL (7.4-10.4); Platelet Count 178 thou/uL (130-400); Red Blood Cell (RBC) Count 3.67 mill/uL (4.70-6.10); White Blood Cell (WBC) Count 14.1 thou/uL (4.8-10.8)
[2018-11-07 09:01] LABS: Magnesium 2.7 mg/dL (1.6-2.6); Phosphorus 2.6 mg/dL (2.3-4.7)
[2018-11-07] MEDS: Famotidine 20 MG TAB PO SCH (09:09)
[2018-11-07] MEDS: Enoxaparin Sodium 40 MG/0.4 ML SYRINGE SC SCH (09:10)
[2018-11-07] MEDS: Famotidine/PF 20 mg/2ml Vial SLOW IVP SCH ×2 (09:11→20:15)
[2018-11-07] MEDS ORDERED: Chloraseptic Spray 180 ml Bottle PO PRN (09:25)
[2018-11-07] MEDS: Furosemide 20 MG/2 ML VIAL SLOW IVP SCH ×2 (10:15→22:11)
[2018-11-07] MEDS ORDERED: Morphine 2 MG/ML SYRINGE SLOW IVP PRN (11:01)
--- NOTE | 2018-11-07 11:17 | PRG ---
DATE OF SERVICE: 11/07/2018 SUBJECTIVE: Mr. Scott is doing well from a cardiac standpoint. No chest pain or pressure. He is maintaining sinus rhythm. He is having continued NG suction. His blood pressure is relatively high. OBJECTIVE: VITAL SIGNS: His blood pressure 169/96 and pulse is 63, it is regular. LUNGS: Clear. CARDIAC: Normal S1 and normal S2. There is no murmur, rub, or gallop. ABDOMEN: Soft. I did not palpate deeply as he is postoperative, still somewhat distended. EXTREMITIES: Warm and dry. PERTINENT LABORATORY: Potassium is 4.1 and creatinine is 0.8. ASSESSMENT: 1. Postop for small bowel obstruction. 2. Coronary artery disease, appears stable. 3. Atrial fibrillation maintaining sinus rhythm. PLAN: 1. Continue intravenous beta blockers. 2. If needed, we can add nicardipine for blood pressure. Another option would be intravenous Vasotec that is available. We will check to see first if that is available. Job ID: [id number]
--- NOTE | 2018-11-07 11:29 | PRG ---
DATE OF SERVICE: 11/07/2018 SUBJECTIVE: Mr. Scott is a 72-year-old man, who is postoperative day #2, status post right hemicolectomy with primary anastomosis. The patient is awake and alert. He reports adequate pain control. Urinary output is improving since this morning. OBJECTIVE: VITAL SIGNS: Currently includes blood pressure 169/96, pulse 69, respiratory rate is 20, maximum temperature in last 24 hours is 98.5 degrees Fahrenheit, and oxygen saturation currently is 95% on room air. HEART: Reveals regular rate and rhythm. No murmurs or gallops auscultated. LUNGS: Clear to auscultation bilaterally. Breathing, regular and nonlabored. ABDOMEN: Soft and nondistended. He has incisional tenderness to palpation. Subcutaneous Claudio-Keen drain returns about 10 mL of serous fluid. EXTREMITIES: Reveal 2+ radial and pedal pulses bilaterally. No ankle edema is present. NEUROLOGIC: Reveals no focal deficits present. LABORATORY FINDINGS: Today includes a CBC with 14,100 white blood cells, hemoglobin and hematocrit of 11.0 and 33.8 respectively. Platelet count is 178,000. Metabolic profile; sodium is 138, potassium 4.1, chloride is 105, bicarb is 27, BUN 26, creatinine 0.80, glucose 125, magnesium is 2.7, and phosphorus 2.6. BNP is 793.1. IMPRESSION: 1. Postop day #2 status post exploratory laparotomy, right hemicolectomy, primary anastomosis. 2. Acute congestive heart failure, likely secondary to hypovolemia. 3. We will initiate gentle diuresis and decrease total fluid intake. 4. The patient is hemodynamically stable for transfer to general surgical floor, where we will increase activity per Physical and Occupational Therapy. Above findings and plan discussed with the patient, who indicates understanding information given. I have answered his questions. Job ID: [id number]
--- NOTE | 2018-11-07 12:25 | PQF ---
DATE: 11-09-18 ATTN: DR. SIMONE SHRESTHA / DR. YANELY FREED Please exercise your independent, professional judgment in responding to the clarification form. Clinical indicators are provided on the bottom of this form for your review Please check appropriate box(es): [ ] Sepsis [ x ] SIRS due to non-infectious process (please specify etiology) [ ] Localized infection without sepsis [ ] Other diagnosis [ ] Unable to determine In addition, please specify: Present on Admission (POA): [ ] Yes [ ] No [ x ] Unable to determine For continuity of documentation, please document condition throughout progress notes and discharge summary. Thank You. CLINICAL INDICATORS - SIGNS / SYMPTOMS / LABS ER DX: ABD PAIN,POSSIBLE BOWEL OBSTRUCTION OPERATIVE NOTE 11-05-18: INCARCERATED INCISIONAL HERNIA WITH LARGE BOWEL OBSTRUCTION, NECROTIC TRANSVERSE COLON AND CECUM, EXTENSIVE INTRAABDOMINAL ADHESIONS WBC: 11-03-18: 16.1 11-05-18: 18.6 11-06-18: 17.4 11-07-18: 14.1 BANDS: 11-06-18: 28 TEMP: 11-04-18: 99.3, 100.6, 99.7 HR: 11-05-18: 121 RISK FACTORS: OP NOTE 11-05-18: EXPLORATORY LAPAROTOMY, EXTENSIVE ADHESIOLYSIS, R HEMICOLECTOMY WITH PRIMARY ANASTOMOSIS, REPAIR OF INCISIONAL HERNIA, OP NOTE 11-05-18: INCARCERATED INCISIONAL HERNIA WITH LARGE BOWEL OBSTRUCTION, NECROTIC TRANSVERSE COLON AND CECUM, EXTENSIVE INTRAABDOMINAL ADHESIONS EXTREMES OF AGE TREATMENTS: ER: IVF NS MAR: 11-05-18: LR IVF, ZOSYN IV (This form is maintained as a part of the permanent medical record) 2014 [employer] All Rights Reserved JEANIE [email or web address] Office: [phone] [facility] MEDICAL CENTERBeatriz
[2018-11-07] MEDS: Enalaprilat Dihydrate 1.25 MG/ML VIAL SLOW IVP SCH ×2 (12:44→18:20)
--- NOTE | 2018-11-07 19:10 | PDOC.PN ---
- Subjective Encounter Start Date: 11/07/18 Encounter Start Time: 19:15 Moved to surgical floor, family present. NGT in place. Post op pain is "tolerable." Breathing improved. Not able to walk much so far. - Objective Resuscitation Status - Order Detail: 11/04/18 09:59 Resuscitation Status Routine Resuscitation Status: FULL: Full Resuscitation Vital Signs & Weight: Vital Signs (12 hours) Temp Pulse Pulse BP BP BP Pulse Ox 11/07/18 18:20 157/75 H 11/07/18 16:00 98.3 F 11/07/18 12:44 161/61 H 11/07/18 12:00 98.1 F 11/07/18 08:37 69 68 172/82 H 175/77 H 11/07/18 08:00 98.3 F 95 11/07/18 07:37 96 Pulse Ox Pulse Ox 11/07/18 18:20 11/07/18 16:00 11/07/18 12:44 11/07/18 12:00 11/07/18 08:37 95 96 11/07/18 08:00 11/07/18 07:37 Weight Admit Weight 181 lb 14.102 oz Weight 183 lb 13.848 oz Most Recent Monitor Data Heart Rate from ECG 58 NIBP 157/75 NIBP BP-Mean 102 Respiration from ECG 18 SpO2 98 I&O: 11/06/18 11/07/18 11/08/18 06:59 06:59 06:59 Intake Total 3027 3229 834 Output Total 1953 1717 2060 Balance 1074 1512 -1226 Result Diagrams: 11/07/18 03:59 11/06/18 14:47 Phys Exam - Physical Examination Constitutional: NAD HEENT: PERRLA NGT Neck: supple, full ROM Respiratory: no wheezing, no rales Cardiovascular: RRR Gastrointestinal: soft scant bowel sounds, appropriately tender Musculoskeletal: no edema Neurological: non-focal, moves all 4 limbs Psychiatric: normal affect, A&O x 3 Skin: no rash Dx/Plan (1) Paroxysmal A-fib Code(s): I48.0 - PAROXYSMAL ATRIAL FIBRILLATION Status: Acute (2) Bowel obstruction Code(s): K56.609 - UNSP INTESTNL OBST, UNSP TO PARTIAL VERSUS COMPLETE OBST Status: Acute (3) Incarcerated hernia Code(s): K46.0 - UNSP ABDOMINAL HERNIA WITH OBSTRUCTION, WITHOUT GANGRENE Status: Acute (4) Coronary artery disease Code(s): I25.10 - ATHSCL HEART DISEASE OF [place] CORONARY ARTERY W/O ANG PCTRS Status: Chronic (5) Hypertension Code(s): I10 - ESSENTIAL (PRIMARY) HYPERTENSION Status: Chronic - Plan * POD # 2 s/p ex lap, right hemicolectomy, primary anastamosis. Presently with NGT, await return of bowel function. Follow K/Mg * Deconditioned - start PT/OT * HTN - IV beta vu * PAF presently sinus, Dr Anderson (cardiology) following
[2018-11-08] MEDS: Enalaprilat Dihydrate 1.25 MG/ML VIAL SLOW IVP SCH ×3 (00:16→12:10)
[2018-11-08] MEDS: Acetaminophen 500 MG TAB PO SCH ×5 (00:16→23:38)
[2018-11-08] MEDS: Metoprolol Tartrate 5 MG/5 ML VIAL IVP SCH ×2 (04:55→09:14)
[2018-11-08 05:29] VITALS: BMI 26.0
[2018-11-08 06:03] LABS: #Eosinphils 0.1 thou/uL (0.0-0.7); #Lymphocytes 1.5 thou/uL (1.20-3.40); #Neutrophils 6.5 thou/uL (1.40-6.50); %Basophils 0.3 % (0.0-1.0); %Monocytes 11.4 % (0.0-10.0); %Neutrophils 71.4 % (42.0-75.0); Hemoglobin 11.6 g/dL (14.0-18.0); Mean Corpuscular HGB CONC 32.3 g/dL (32.0-36.0); Mean Corpuscular Hemoglobin 29.6 pg (27.0-31.0); Mean Corpuscular Volume 91.6 fL (78.0-98.0); Mean Platelet Volume 7.5 fL (7.4-10.4); Platelet Count 214 thou/uL (130-400); RBC Distribution Width 12.2 % (11.5-14.5); Red Blood Cell (RBC) Count 3.92 mill/uL (4.70-6.10); White Blood Cell (WBC) Count 9.1 thou/uL (4.8-10.8)
[2018-11-08 06:23] LABS: Anion Gap 12 mmol/L (10-20); BUN (Urea Nitrogen) 34 mg/dL (8.4-25.7); Calc. Creatinine Clearance 93 mL/min (70-130); Carbon Dioxide 31 mmol/L (23-31); Chloride 104 mmol/L (98-107); Estimated GFR-MDRD Greater than 90; Glucose 101 mg/dL (83-110); Magnesium 2.2 mg/dL (1.6-2.6); Phosphorus 2.7 mg/dL (2.3-4.7); Potassium 3.5 mmol/L (3.5-5.1); Sodium 143 mmol/L (136-145)
[2018-11-08] MEDS: Famotidine/PF 20 mg/2ml Vial SLOW IVP SCH ×2 (09:13→20:18)
[2018-11-08] MEDS: Enoxaparin Sodium 40 MG/0.4 ML SYRINGE SC SCH (09:14)
[2018-11-08] MEDS: Furosemide 20 MG/2 ML VIAL SLOW IVP SCH (09:14)
[2018-11-08] MEDS: Hydrocortisone Sod Succ/PF 100 mg/2 ml Vial IVP SCH ×2 (09:14→20:17)
[2018-11-08] MEDS: Tamsulosin HCl 0.4 MG CAP PO SCH (12:11)
[2018-11-08] MEDS ORDERED: Furosemide 20 MG/2 ML VIAL SLOW IVP SCH (16:30)
[2018-11-08] MEDS: Lactated Ringer's 1,000 ML IV SCH (16:34)
--- NOTE | 2018-11-08 18:39 | PDOC.PN ---
- Subjective Encounter Start Date: 11/08/18 Encounter Start Time: 16:20 Follow up medical issues. Patient report BM early this morning. NGT clamped. Spoke to bedside nurse, surgery team ok to restart home meds. Breathing "great. " Pain control adequate. - Objective Resuscitation Status - Order Detail: 11/04/18 09:59 Resuscitation Status Routine Resuscitation Status: FULL: Full Resuscitation Vital Signs & Weight: Vital Signs (12 hours) Temp Pulse Resp BP Pulse Ox 11/08/18 15:18 97.4 F L 78 18 152/78 H 95 11/08/18 12:09 97.7 F 59 L 20 166/68 H 95 11/08/18 07:44 98.1 F 64 18 181/73 H 94 L Weight Admit Weight 171 lb 15.4 oz Weight 171 lb 8.314 oz Most Recent Monitor Data Heart Rate from ECG 58 NIBP 157/75 NIBP BP-Mean 102 Respiration from ECG 18 SpO2 98 I&O: 11/07/18 11/08/18 11/09/18 06:59 06:59 06:59 Intake Total 3229 1734 Output Total 1717 4235 Balance 1512 -2501 Result Diagrams: 11/08/18 05:35 11/08/18 05:35 Phys Exam - Physical Examination Constitutional: NAD HEENT: PERRLA Neck: no JVD Respiratory: clear to auscultation bilateral Cardiovascular: RRR Gastrointestinal: soft mildly tender, bs present, scant Musculoskeletal: no edema Neurological: non-focal Psychiatric: normal affect, A&O x 3 Skin: no rash Dx/Plan (1) Paroxysmal A-fib Code(s): I48.0 - PAROXYSMAL ATRIAL FIBRILLATION Status: Acute (2) Bowel obstruction Code(s): K56.609 - UNSP INTESTNL OBST, UNSP TO PARTIAL VERSUS COMPLETE OBST Status: Acute (3) Incarcerated hernia Code(s): K46.0 - UNSP ABDOMINAL HERNIA WITH OBSTRUCTION, WITHOUT GANGRENE Status: Acute (4) Coronary artery disease Code(s): I25.10 - ATHSCL HEART DISEASE OF [place] CORONARY ARTERY W/O ANG PCTRS Status: Chronic (5) Hypertension Code(s): I10 - ESSENTIAL (PRIMARY) HYPERTENSION Status: Chronic - Plan * POD #3 s/o ex lap, right hemicolectomy, primary anastamosis. Presently with intermittantly clamped NGT. On tube feeds. BM this am. * Resumed home meds, with exception of ASA 81mg daily. Will resume this if ok with surgery team. * HTN- restarted home regimen * PAF presently sinus, Dr. Anderson (cardiology) following
--- NOTE | 2018-11-08 18:49 | PRG ---
DATE OF SERVICE: 11/08/2018 SUBJECTIVE: The patient was seen this morning, sitting up in chair. Reported having bowel movements and having output through his Talbot. Denies significant abdominal pain. Pain is well controlled. Still n.p.o. With trickle tube feeds. The patient was again re-evaluated by the Trauma Service in the afternoon, and the patient reported he was feeling very well after his NG tube was clamped. Denies nausea, vomiting, and diarrhea. OBJECTIVE: VITAL SIGNS: Temperature 98.1, pulse 64, respirations 18, oxygen 94% on room air, and blood pressure 181/73. GENERAL: Elderly male, sitting up in chair with no signs of acute respiratory distress. PULMONARY: Equal chest rise and fall. Clear breath sounds bilaterally. No signs of acute respiratory distress. CARDIAC: Regular rate and rhythm. No murmurs, gallops, or rubs. GI: Midline abdominal incision with wound clean, dry, and intact. HERMELINDO drain with serosanguineous output. Minimal inside of collecting system. Otherwise, abdomen is soft, nontender, and moderately distended. EXTREMITIES: Gross motor and sensation intact in all extremities. No significant swelling noted. 2+ pulses in all extremities. LABORATORY FINDINGS: White count 9.1, hemoglobin 11.6, hematocrit 35.4, and platelets 214. Sodium 143, potassium 3.4, chloride 104, carbon dioxide 31, BUN 34, creatinine 0.78, phos 2.7, and magnesium 2.2. DIAGNOSTIC FINDINGS: There are no new diagnostic findings to report. ASSESSMENT: 1. Incarcerated incisional hernia with large bowel obstruction, necrotic transverse colon and cecum. Significant abdominal adhesions. 2. History of hypertension. 3. Hyperlipidemia. 4. Coronary artery disease. 5. Myocardial infarction. 6. Systolic heart failure. 7. Atrial fibrillation. PLAN: We will discontinue NG tube today and place the patient on a clear liquid diet. We will also discontinue IV fluids. We will discontinue abdominal surgical drain. Start home antihypertensives. Discontinue Talbot and do void trial. We will give 20 mg of Lasix x1. Continue to monitor urinary output with strict I's and O's. Continue to sit up in chair and work with Physical and Occupational Therapies. The patient was seen and examined by Dr. Bearden and myself this morning and this afternoon during rounds. Job ID: [id number]
[2018-11-08] MEDS ORDERED: Clopidogrel Bisulfate 75 MG TAB ONE (20:13)
[2018-11-08] MEDS: Rosuvastatin 20 MG TAB PO SCH (20:18)
[2018-11-08] MEDS: Carvedilol 25 MG TAB PO SCH (20:18)
[2018-11-09] MEDS: Acetaminophen 500 MG TAB PO SCH ×4 (05:41→23:21)
[2018-11-09 06:01] LABS: #Eosinphils 0.1 thou/uL (0.0-0.7); #Lymphocytes 1.2 thou/uL (1.20-3.40); %Basophils 0.6 % (0.0-1.0); %Eosinophils 1.4 % (0.0-10.0); %Lymphocytes 14.7 % (21.0-51.0); %Monocytes 11.4 % (0.0-10.0); Hemoglobin 11.8 g/dL (14.0-18.0); Mean Corpuscular HGB CONC 32.8 g/dL (32.0-36.0); Mean Corpuscular Volume 91.5 fL (78.0-98.0); Mean Platelet Volume 7.3 fL (7.4-10.4); Platelet Count 213 thou/uL (130-400); RBC Distribution Width 12.2 % (11.5-14.5); Red Blood Cell (RBC) Count 3.93 mill/uL (4.70-6.10); White Blood Cell (WBC) Count 8.3 thou/uL (4.8-10.8)
[2018-11-09 06:23] LABS: Anion Gap 10 mmol/L (10-20); BUN (Urea Nitrogen) 26 mg/dL (8.4-25.7); Calc. Creatinine Clearance 108 mL/min (70-130); Calcium 7.9 mg/dL (7.8-10.44); Carbon Dioxide 31 mmol/L (23-31); Chloride 103 mmol/L (98-107); Estimated GFR-MDRD Greater than 90; Glucose 115 mg/dL (83-110); Magnesium 1.8 mg/dL (1.6-2.6); Phosphorus 2.4 mg/dL (2.3-4.7); Potassium 3.2 mmol/L (3.5-5.1); Sodium 141 mmol/L (136-145)
[2018-11-09] MEDS ORDERED: Magnesium 2 GM/50 ML 2 GM in Premix Bag 1 BAG IVPB SCH (07:30)
[2018-11-09] MEDS ORDERED: Potassium Phosphate 30 MMOL in Sodium Chloride 0.9% 500 ML IVPB SCH (07:30)
[2018-11-09] MEDS ORDERED: Potassium Phosphate 30 MMOL in Sodium Chloride 0.9% 250 ML 250 ML IVPB SCH (07:45)
[2018-11-09] MEDS: Ubidecarenone 50 MG CAP PO SCH (08:48)
[2018-11-09] MEDS: Carvedilol 25 MG TAB PO SCH ×2 (08:48→20:51)
[2018-11-09] MEDS: Tamsulosin HCl 0.4 MG CAP PO SCH (08:48)
[2018-11-09] MEDS: Hydrochlorothiazide 25 MG TAB PO SCH (08:48)
[2018-11-09] MEDS: Enoxaparin Sodium 40 MG/0.4 ML SYRINGE SC SCH (08:49)
[2018-11-09] MEDS: Multivitamin W/ Minerals 1 TAB PO SCH (08:49)
[2018-11-09] MEDS: Hydrocortisone Sod Succ/PF 100 mg/2 ml Vial IVP SCH (08:49)
[2018-11-09] MEDS ORDERED: CHOLECALCIFEROL PO SCH (09:00)
[2018-11-09] MEDS ORDERED: traMADol HCl 50 MG TAB PO PRN (12:24)
[2018-11-09] MEDS ORDERED: Furosemide 20 MG/2 ML VIAL SLOW IVP SCH (12:30)
--- NOTE | 2018-11-09 14:15 | PRG ---
DATE OF SERVICE: 11/09/2018 SUBJECTIVE: The patient was seen this morning, sitting up in bed, in no signs of acute distress. He reported multiple loose bowel movements today. Yesterday, NG tube was clamped and then eventually pulled in the evening time. He was advanced to a clear liquid diet, which he has been tolerating since that time. No nausea or vomiting reported. He states his pain is well controlled. He was started on his home antihypertensives yesterday. OBJECTIVE: VITAL SIGNS: Temperature 97.6, pulse 60, respirations 12, oxygen saturation 94% on room air, blood pressure 127/68. GENERAL: Elderly male, sitting up in bed with no signs of acute distress. PULMONARY: Equal chest rise and fall. Clear breath sounds bilaterally. No signs of acute respiratory distress. CARDIAC: Regular rate and rhythm. No murmurs, gallops, or rubs. GI: Midline abdominal incision. Wound is clean, dry, and intact with no signs of infection. Previous HERMELINDO drain has been removed. The abdomen is otherwise soft, appropriately tender, and mildly distended. EXTREMITIES: 2+ pulses in all extremities. Gross motor and sensation intact in all extremities. No significant swelling noted. LABORATORY FINDINGS: White count 8.3, hemoglobin 11.8, hematocrit 35.9, platelets 213. Sodium 141, potassium 3.2, chloride 103, carbon dioxide 31, BUN 26, creatinine 0.67, glucose 115, phosphorus 2.4, magnesium 1.8. BNP 432.1. DIAGNOSTIC FINDINGS: There are no new diagnostic findings to report. ASSESSMENT: 1. Incarcerated incisional hernia with large bowel obstruction, necrotic transverse colon and cecum, significant abdominal adhesions. 2. History of hypertension, Hyperlipidemia, Coronary artery disease, Myocardial infarction, Systolic heart failure, Atrial fibrillation. 3. Diarrhea. 4. Hypokalemia. 5. Hypophosphatemia. 6. Hypomagnesemia. PLAN: The patient was advanced to a regular diet today. The Dobhoff and tube feeds were discontinued. He was given 20 mg of IV Lasix x1. We will continue his home antihypertensive medications. We did de-escalate his hydrocortisone today to 12.5 mg daily for the next 2 days. He continued to work with Physical and Occupational Therapy. Rehab screen was requested. The patient is deconditioned and will greatly benefit from time at rehab. The patient was seen and examined by Dr. Bearden and myself this morning during rounds. Job ID: [id number]
--- NOTE | 2018-11-09 16:22 | PDOC.PN ---
- Subjective Encounter Start Date: 11/09/18 Encounter Start Time: 16:18 Subjective: Feeling better. Dubhoff removed earlier. -: tolerating regular diet. -: Denied fever, chest pain, SOB or leg swelling. - Objective Resuscitation Status - Order Detail: 11/04/18 09:59 Resuscitation Status Routine Resuscitation Status: FULL: Full Resuscitation Vital Signs & Weight: Vital Signs (12 hours) Temp Pulse Resp BP Pulse Ox 11/09/18 14:44 97.6 F 60 14 148/76 H 97 11/09/18 11:45 97.6 F 60 12 127/68 94 L 11/09/18 07:45 97.5 F L 122 H 14 164/74 H 11/09/18 06:36 95 Weight Admit Weight 171 lb 15.4 oz Weight 171 lb 8.314 oz Most Recent Monitor Data Heart Rate from ECG 58 NIBP 157/75 NIBP BP-Mean 102 Respiration from ECG 18 SpO2 98 I&O: 11/08/18 11/09/18 11/10/18 06:59 06:59 06:59 Intake Total 1734 1720 Output Total 4235 650 Balance -2501 1070 Result Diagrams: 11/09/18 05:38 11/09/18 05:38 Phys Exam - Physical Examination Constitutional: NAD HEENT: PERRLA, moist MMs Neck: no JVD, supple Respiratory: no wheezing, no rales, no rhonchi, clear to auscultation bilateral Cardiovascular: RRR Gastrointestinal: soft, no distention, positive bowel sounds Musculoskeletal: no edema, pulses present Neurological: non-focal, moves all 4 limbs Psychiatric: A&O x 3 Dx/Plan (1) Ischemic cardiomyopathy Code(s): I25.5 - ISCHEMIC CARDIOMYOPATHY Status: Acute (2) Hypokalemia Code(s): E87.6 - HYPOKALEMIA Status: Acute (3) Diverticulosis Code(s): K57.90 - DVRTCLOS OF INTEST, PART UNSP, W/O PERF OR ABSCESS W/O BLEED Status: Acute (4) Hernia of anterior abdominal wall with obstruction and gangrene Code(s): K43.7 - OTHER AND UNSPECIFIED VENTRAL HERNIA WITH GANGRENE Status: Acute (5) Physical deconditioning Code(s): R53.81 - OTHER [place] Status: Acute (6) SIRS without infection with organ dysfunction Code(s): R65.11 - SIRS OF NON-INFECTIOUS ORIGIN W ACUTE ORGAN DYSFUNCTION Status: Acute Comment: Most likely present on admission. (7) Bowel obstruction Code(s): K56.609 - UNSP INTESTNL OBST, UNSP TO PARTIAL VERSUS COMPLETE OBST Status: Acute (8) Incarcerated hernia Code(s): K46.0 - UNSP ABDOMINAL HERNIA WITH OBSTRUCTION, WITHOUT GANGRENE Status: Acute (9) Paroxysmal A-fib Code(s): I48.0 - PAROXYSMAL ATRIAL FIBRILLATION Status: Acute Comment: Now in sinus (10) Coronary artery disease Code(s): I25.10 - ATHSCL HEART DISEASE OF [place] CORONARY ARTERY W/O ANG PCTRS Status: Chronic (11) Hypertension Code(s): I10 - ESSENTIAL (PRIMARY) HYPERTENSION Status: Chronic (12) Status post right hemicolectomy Code(s): Z90.49 - ACQUIRED ABSENCE OF OTHER SPECIFIED PARTS OF DIGESTIVE TRACT Status: Acute - Plan Diet as tolerated. -: replete serum potassium and phosphate. -: Increase activity. -: get repeat renal function test in the am. -: anticipate discharge to acute rehab tomorrow * .
[2018-11-09] MEDS: Rosuvastatin 20 MG TAB PO SCH (20:51)
[2018-11-10] MEDS: Acetaminophen 500 MG TAB PO SCH ×3 (05:08→14:52)
[2018-11-10 06:17] LABS: Band 3 % (5-11); Eosinophils 1 % (0-10); Hemoglobin 12.1 g/dL (14.0-18.0); Lymphocytes 18 % (21-51); MDiff Complete? YES; Mean Corpuscular HGB CONC 32.3 g/dL (32.0-36.0); Mean Corpuscular Hemoglobin 29.4 pg (27.0-31.0); Mean Corpuscular Volume 91.1 fL (78.0-98.0); Mean Platelet Volume 7.4 fL (7.4-10.4); Monocytes 9 % (0-10); Neutrophil 69 % (42-75); Platelet Count 220 thou/uL (130-400); RBC Distribution Width 12.2 % (11.5-14.5); Red Blood Cell (RBC) Count 4.11 mill/uL (4.70-6.10); White Blood Cell (WBC) Count 9.5 thou/uL (4.8-10.8)
[2018-11-10 07:09] LABS: Anion Gap 9 mmol/L (10-20); BUN (Urea Nitrogen) 20 mg/dL (8.4-25.7); Calc. Creatinine Clearance 111 mL/min (70-130); Calcium 8.1 mg/dL (7.8-10.44); Carbon Dioxide 31 mmol/L (23-31); Chloride 101 mmol/L (98-107); Estimated GFR-MDRD Greater than 90; Glucose 104 mg/dL (83-110); Phosphorus 3.4 mg/dL (2.3-4.7); Potassium 3.2 mmol/L (3.5-5.1); Sodium 138 mmol/L (136-145)
[2018-11-10] MEDS: Ubidecarenone 50 MG CAP PO SCH (08:19)
[2018-11-10] MEDS: Multivitamin W/ Minerals 1 TAB PO SCH (08:19)
[2018-11-10] MEDS: Hydrocortisone Sod Succ/PF 100 mg/2 ml Vial IVP SCH (08:19)
[2018-11-10] MEDS: Enoxaparin Sodium 40 MG/0.4 ML SYRINGE SC SCH (08:19)
[2018-11-10] MEDS: Carvedilol 25 MG TAB PO SCH (08:20)
[2018-11-10] MEDS: Hydrochlorothiazide 25 MG TAB PO SCH (08:20)
[2018-11-10] MEDS: Tamsulosin HCl 0.4 MG CAP PO SCH (08:20)
[2018-11-10] MEDS ORDERED: Potassium Chloride 20 MEQ TAB PO SCH (09:00)
[2018-11-10] MEDS ORDERED: Potassium Chloride 20 MEQ TAB PO STA (12:45)
[2018-11-10 12:47] VITALS: BP 114/67; TEMP 97.5
--- NOTE | 2018-11-10 13:52 | DIS ---
DATE OF ADMISSION: 11/04/2018 DATE OF DISCHARGE: 11/10/2018 DISCHARGE DIAGNOSES: 1. Incarcerated abdominal wall hernia with gangrene of cecum and ascending colon. 2. Status post right hemicolectomy. 3. Bowel obstruction. 4. Systemic inflammatory response syndrome. 5. Physical deconditioning. 6. Hypertension. 7. Paroxysmal atrial fibrillation. 8. Coronary artery disease. 9. Ischemic cardiomyopathy. 10. Hypokalemia. 11. Diverticulosis. 12. Hernia of anterior abdominal wall with obstruction and gangrene formation. CONSULTS: 1. Cardiology. 2. General Surgery. PROCEDURE PERFORMED: 1. Exploratory laparotomy. 2. Extensive adhesiolysis. 3. Right hemicolectomy with primary anastomosis. 4. Repair of incisional hernia. 5. Placement of nasojejunal tube. 6. Placement of triple-lumen left subclavian central venous catheter. DISCHARGE MEDICATIONS: 1. Aspirin 81 mg p.o. daily. 2. Carvedilol 25 mg p.o. b.i.d. 3. Cholecalciferol with vitamin D 5000 units p.o. daily. 4. Hydrochlorothiazide 12.5 mg p.o. daily. 5. Avapro 300 mg p.o. daily at bedtime. 6. Multivitamin with minerals, Centrum Silver Men one tablet daily. 7. Crestor 20 mg p.o. daily. 8. Coenzyme Q10 100 mg p.o. daily. 9. Acetaminophen Extra Strength 1000 mg p.o. q.6 hours p.r.n. for pain. 10. Zofran ODT 4 mg q.6 p.r.n. for nausea and vomiting. 11. Ondansetron IV 4 mg every 6 hours p.r.n. for nausea and vomiting. 12. Tamsulosin (Flomax) 0.4 mg p.o. daily. 13. Tramadol 50 mg q.6 p.r.n. for pain. 14. Potassium chloride 20 mEq p.o. daily. HOSPITAL COURSE: A 72-year-old male with known history of hypertension, hyperlipidemia, coronary artery disease, and ischemic cardiomyopathy with ejection fraction in 30s with known history of ventral abdominal wall hernia, who was admitted due to acute onset of abdominal pain and distention associated with passage of no flatus. Evaluation showed intestinal obstruction. General Surgery consult was obtained and the patient was subsequently taken to OR for exploratory laparotomy, during which he was found to have ischemic injury to the cecum and ascending colon due to incarcerated hernia. The patient had right hemicolectomy as well as repair of ventral hernia. Postoperative recovery was uneventful, and tube was subsequently removed and the patient was tolerating oral intake. He was however found to be physically decondition and was felt to be in need of acute rehabilitation, hence discharged to inpatient rehab for further restorative therapy. Of note, the patient was seen by Cardiology for preop clearance. PHYSICAL EXAMINATION: VITAL SIGNS: Temperature 97.4, pulse 63, respiratory rate 14, SpO2 of 92 on room air, and blood pressure is 113/57. GENERAL: Healthy-looking elderly male, in no distress. Afebrile. Anicteric. Acyanotic. HEENT: Normocephalic and atraumatic. Pupils are equal and reacting to light. Oral mucosa is moist. CARDIOVASCULAR: Regular rhythm and rate with normal heart sounds 1 and 2. RESPIRATORY: Good air entry bilaterally with no obvious crackle or rhonchi or use of accessory muscles. GI: Abdomen is full, soft, nondistended. Surgical dressing noted. EXTREMITIES: Grossly normal looking, atraumatic with no edema or erythema. NEUROLOGIC: Conscious, alert and oriented x3 with appropriate mental status. Cranial nerves 2 through 12 are intact. The patient is ambulant. CONDITION AT DISCHARGE: Stable. FOLLOWUP: The patient was asked to follow up with primary care physician of his choice on discharge from acute rehab. He is also to follow up with Cardiology and General Surgery. This discharge took more than 38 minutes. Job ID: [id number]
== END 2018-11-10 15:15 | DRG 329 ==
LOC: ERS 14:50 → T4-B 21:21 → OBSVTOIN 11-04 10:10 → CCU 11-05 00:45 → SURG B 11-07 19:00
PROVIDERS: ADMIT Internal Medicine; ATTEND Internal Medicine
PROC: 0DTF0ZZ Resection of Right Large Intestine, Open Approach (ICD-10-PCS; principal; 2018-11-05)
PROC: 0WQF0ZZ Repair Abdominal Wall, Open Approach (ICD-10-PCS; 2018-11-05)
PROC: 0DNW0ZZ Release Peritoneum, Open Approach (ICD-10-PCS; 2018-11-05)
PROC: 02HV33Z Insertion of Infusion Device into Superior Vena Cava, Percutaneous Approach (ICD-10-PCS; 2018-11-05)
PROC: 0DH67UZ Insertion of Feeding Device into Stomach, Via Natural or Artificial Opening (ICD-10-PCS; 2018-11-05)
PROC: 3E0G76Z Introduction of Nutritional Substance into Upper GI, Via Natural or Artificial Opening (ICD-10-PCS; 2018-11-06)
DX: K43.1 Incisional hernia with gangrene (principal); I50.23 Acute on chronic systolic (congestive) heart failure; R65.10 Systemic inflammatory response syndrome (SIRS) of non-infectious origin without acute organ dysfunction; I11.0 Hypertensive heart disease with heart failure; E78.5 Hyperlipidemia, unspecified; I25.10 Atherosclerotic heart disease of native coronary artery without angina pectoris; K66.0 Peritoneal adhesions (postprocedural) (postinfection); I48.0 Paroxysmal atrial fibrillation; I25.5 Ischemic cardiomyopathy; E87.6 Hypokalemia; E83.42 Hypomagnesemia; E83.39 Other disorders of phosphorus metabolism; R53.81 Other malaise; K57.30 Diverticulosis of large intestine without perforation or abscess without bleeding; I25.2 Old myocardial infarction; Z79.82 Long term (current) use of aspirin; Z79.899 Other long term (current) drug therapy; Z98.890 Other specified postprocedural states; Z88.8 Allergy status to other drugs, medicaments and biological substances; Z87.891 Personal history of nicotine dependence; Z82.49 Family history of ischemic heart disease and other diseases of the circulatory system
CPT/HCPCS: 36415; 36416; 71045; 74018; 74177; 74280; 80048; 80053; 82533; 82805; 83735; 83880; 84100; 85025; 88307; 93005; 93010; 94002; 96361; 96374; 96375; J0694; J1160; J1642; J1650; J1720; J1885; J1940; J2001; J2270; J2405; J2543; J2704; J3010; J3475; J3490; J7050; P9045; Q9963; Q9966; S0028

== ENCOUNTER 2018-11-16 21:44 | Observation (INO) | payer MEDICARE, BC ==
[2018-11-16 22:14] LABS: #Basophils 0.1 thou/uL (0.0-0.2); #Eosinphils 0.2 thou/uL (0.0-0.7); #Lymphocytes 2.1 thou/uL (1.20-3.40); #Monocytes 1.2 thou/uL (0.11-0.59); #Neutrophils 7.6 thou/uL (1.40-6.50); %Basophils 0.7 % (0.0-1.0); %Eosinophils 1.6 % (0.0-10.0); %Lymphocytes 18.8 % (21.0-51.0); %Monocytes 10.9 % (0.0-10.0); Hemoglobin 13.7 g/dL (14.0-18.0); Mean Corpuscular HGB CONC 34.7 g/dL (32.0-36.0); Mean Corpuscular Hemoglobin 30.3 pg (27.0-31.0); Mean Corpuscular Volume 87.2 fL (78.0-98.0); Mean Platelet Volume 6.8 fL (7.4-10.4); Platelet Count 296 thou/uL (130-400); RBC Distribution Width 12.9 % (11.5-14.5); Red Blood Cell (RBC) Count 4.53 mill/uL (4.70-6.10); White Blood Cell (WBC) Count 11.1 thou/uL (4.8-10.8)
--- NOTE | 2018-11-16 22:14 | RAD ---
RADIOGRAPH CHEST ONE VIEW: DATE: 11/16/2018 HISTORY: 72-year-old male with chest pain FINDINGS: There are no airspace densities, pulmonary edema, pneumothorax, or cardiomegaly. The lateral costophr enic angles are sharp. IMPRESSION: No acute cardiopulmonary findings.
[2018-11-16 22:27] LABS: ALT (SGPT) 36 U/L (8-55); AST (SGOT) 19 U/L (5-34); Albumin 3.8 g/dL (3.4-4.8); Alkaline Phosphatase 82 U/L (40-150); Anion Gap 16 mmol/L (10-20); BUN (Urea Nitrogen) 10 mg/dL (8.4-25.7); Bilirubin, Total 0.5 mg/dL (0.2-1.2); Calc. Creatinine Clearance 0 mL/min (70-130); Calcium 8.7 mg/dL (7.8-10.44); Carbon Dioxide 20 mmol/L (23-31); Chloride 107 mmol/L (98-107); Estimated GFR-MDRD Greater than 90; Globulin 3.1 g/dL (2.4-3.5); Glucose 112 mg/dL (83-110); Lipase 144 U/L (8-78); Potassium 3.9 mmol/L (3.5-5.1); Protein, Total 6.9 g/dL (5.8-8.1); Sodium 139 mmol/L (136-145)
[2018-11-16] MEDS ORDERED: Aspirin Chewable 81 MG TAB ONE (23:03)
--- NOTE | 2018-11-16 23:11 | CT ---
CT angiogram thorax with contrast: (CTA pulmonary angiogram) HISTORY: 72-year-old male with tachycardia and chest discomfort TECHNIQUE: IV injection of iodinated contrast. Scan acquisition timing attempted to coincide with iodinated contrast bolus reaching maximal density in pulmonary arteries. 3-D MIP reconstructions. FINDINGS: Pulmonary thromboembolism: None. Lungs: No consolidation or edema. Pneumothorax: None. Pleural effusion: None. Thoracic aorta: Ectasia and atherosclerotic calcification. No dissection or aneurysm. heart: No cardiomegaly. No pericardial effusion. Atherosclerotic calcification of LAD, LCx, and RCA. Mediastinum and maren: No lymphadenopathy. IMPRESSION: 1. No pulmonary thromboembolism. 2. No acute findings. 3. Coronary atherosclerotic disease.
[2018-11-17 01:09] VITALS: BMI 24.3
[2018-11-17] MEDS ORDERED: Sodium Chloride 0.9% 1,000 ML IV SCH ×2 (01:30→02:30)
[2018-11-17] MEDS ORDERED: Acetaminophen 650 MG Suppository PR PRN (02:18)
[2018-11-17] MEDS ORDERED: Acetaminophen 325 MG TAB PO PRN (02:18)
[2018-11-17] MEDS ORDERED: traMADol HCl 50 MG TAB PO PRN (02:20)
--- NOTE | 2018-11-17 04:37 | HP ---
CHIEF COMPLAINT: Tachycardia. 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 The patient states that he was lying in bed, attempting to fall asleep when he turned onto his left side and suddenly felt what he describes as a burning sensation/indigestion. He began to feel his heart pounding, and when he checked his heart rate, it was elevated at 159. He did not have any associated chest pain or difficulty breathing. Denies any diaphoresis, nausea, or vomiting. He states he coughed hard, and his heart rate settled down to 70. He opted to come into the emergency department for evaluation. The patient is status post recent bowel resection on November 05, 2018. He states since then he has had persistent loose stools multiple times a day. Denies having any associated fevers, chills, or sweats. Denies having any bloody stools. Reports mild abdominal discomfort associated with surgery. He still has val in place and undergoes regular dressing changes. Has not noted any abdominal pain or erythema or swelling. REVIEW OF SYSTEMS: The patient denies having any cough or hemoptysis. No urinary complaints. All other review of systems apart from those mentioned above in HPI are negative. ALLERGIES: SIMVASTATIN. CURRENT MEDICATIONS: 1. Imodium. 2. Potassium chloride. 3. Cholestyramine. 4. Carvedilol. 5. Irbesartan. 6. Crestor. 7. Hydrochlorothiazide. 8. Tamsulosin. 9. Aspirin. PAST MEDICAL HISTORY: 1. Coronary artery disease. 2. FL. 3. Hyperlipidemia. 4. Hypertension. PAST SURGICAL HISTORY: 1. Bifemoral aortic bypass. 2. Bowel resection. SOCIAL HISTORY: The patient denies any tobacco use, alcohol use, or illicit drug use. PHYSICAL EXAMINATION: GENERAL: The patient appears well developed, well nourished, who is in no acute distress. He is found resting comfortably in bed. VITAL SIGNS: Temperature 97.6, pulse 65, respirations 18, O2 saturation 97% on room air, and blood pressure 108/55. HEENT: Normocephalic and atraumatic. Pupils are equal, round, and reactive to light. Sclerae are without icterus. Oropharynx is clear. NECK: Supple. No lymphadenopathy. LUNGS: Clear to auscultation bilaterally without wheezes, rales, or rhonchi. CARDIAC: Regular rhythm without audible murmurs, rubs, or gallops. ABDOMEN: Soft. Ventral wound present with val in place. No purulent discharge or swelling. No erythema surrounding the wound. EXTREMITIES: No lower leg edema. NEUROLOGIC: Alert and oriented x3. SKIN: Without rash or jaundice. LABORATORY DATA: White blood count 11.1, hemoglobin 13.7, hematocrit 39.6, and platelets 296. D-dimer 2.97. Sodium 139, potassium 3.9, chloride 107, BUN 10, creatinine 0.71, GFR greater than 90, glucose 112, calcium 8.7, and total bilirubin 0.5. AST 19, ALT 36, and alkaline phosphatase 82. Troponin I 0.010. Serum total protein 6.9, albumin 3.8, lipase 144, and TSH 1.908. IMAGING DATA: 1. Chest x-ray; no acute cardiopulmonary findings. 2. CT angiogram; no pulmonary thromboembolism. No acute findings. Coronary atherosclerotic disease present. IMPRESSION AND PLAN: Mr. Scott is a 72-year-old man who is being admitted for management of the followin. Tachycardia. The patient had a brief episode of tachycardia with a heart rate of 59. This was preceded by a burning sensation/indigestion in his chest. He has had no further episodes since. Troponin is negative x2. We will obtain the third troponin. D-dimer was elevated; however, CT angiogram was negative for PE. At this present time, the patient is resting comfortably and denies having any pain. We will continue to monitor. The patient currently on tele. 2. Diarrhea. He reports having very frequent loose stools since his surgery. Unable to quantify and has not noted if it is much worse than when he first has surgery or if it is improving. He does state his stools are every 15 minutes. They are watery in nature. We will test for Clostridium difficile. If negative, we will resume his home medications. 3. Hypertension. Resume home medications and monitor blood pressure. 4. Coronary artery disease. Resume home medications and monitor. 5. Gastrointestinal prophylaxis. 6. Deep venous thrombosis prophylaxis with mechanical SCDs. 7. Full code status. The patient's surrogate decision maker is his , Mireya Scott. The patient's case was discussed with Dr. Currie who agrees with plan of care as described above. Job ID: [id number]
[2018-11-17 05:04] LABS: #Eosinphils 0.2 thou/uL (0.0-0.7); #Lymphocytes 1.8 thou/uL (1.20-3.40); #Monocytes 1.2 thou/uL (0.11-0.59); #Neutrophils 6.9 thou/uL (1.40-6.50); %Basophils 0.2 % (0.0-1.0); %Eosinophils 1.7 % (0.0-10.0); %Lymphocytes 18.3 % (21.0-51.0); %Monocytes 11.5 % (0.0-10.0); %Neutrophils 68.3 % (42.0-75.0); Hemoglobin 10.9 g/dL (14.0-18.0); Mean Corpuscular HGB CONC 33.5 g/dL (32.0-36.0); Mean Corpuscular Hemoglobin 29.9 pg (27.0-31.0); Mean Corpuscular Volume 89.5 fL (78.0-98.0); Mean Platelet Volume 7.6 fL (7.4-10.4); Platelet Count 253 thou/uL (130-400); RBC Distribution Width 12.6 % (11.5-14.5); Red Blood Cell (RBC) Count 3.65 mill/uL (4.70-6.10); White Blood Cell (WBC) Count 10.1 thou/uL (4.8-10.8)
[2018-11-17 05:24] LABS: Anion Gap 10 mmol/L (10-20); BUN (Urea Nitrogen) 10 mg/dL (8.4-25.7); Calc. Creatinine Clearance 106 mL/min (70-130); Calcium 7.7 mg/dL (7.8-10.44); Carbon Dioxide 21 mmol/L (23-31); Chloride 107 mmol/L (98-107); Estimated GFR-MDRD Greater than 90; Glucose 100 mg/dL (83-110); Magnesium 1.8 mg/dL (1.6-2.6); Potassium 3.7 mmol/L (3.5-5.1); Sodium 134 mmol/L (136-145)
[2018-11-17 05:46] LABS: Thyroid Stimulating Hormone 1.4818 uIU/mL (0.35-4.94)
[2018-11-17] MEDS ORDERED: Tamsulosin HCl 0.4 MG CAP PO SCH (09:00)
[2018-11-17] MEDS ORDERED: Carvedilol 25 MG TAB PO SCH (09:00)
[2018-11-17] MEDS ORDERED: Hydrochlorothiazide 25 MG TAB PO SCH (09:00)
[2018-11-17] MEDS ORDERED: Loperamide HCl 2 MG CAP PO PRN (09:24)
[2018-11-17] MEDS: Cholestyramine/Aspartame 4 gm Packet PO SCH ×2 (09:35→15:34)
[2018-11-17] MEDS ORDERED: Cholestyramine/Aspartame 4 gm Packet PO SCH (10:00)
[2018-11-17] MEDS ORDERED: Lidocaine 1% PF 5 ML VIAL ONE (12:56)
[2018-11-17] MEDS ORDERED: Lidocaine 1% w/Epinephrine 1:100K 20 ML VIAL ONE (12:56)
--- NOTE | 2018-11-17 15:14 | CON ---
DATE OF CONSULTATION: REASON FOR CONSULTATION: Wide-complex tachycardia, SVT. HISTORY OF PRESENT ILLNESS: Mr. Scott is a 72-year-old male, long-standing patient of Dr. Anderson. He has a history of an inferior ID in 1996. He has also had bilateral aortic fem bypass. He has history of coronary artery disease showing luminal irregularities in LAD and circumflex with an 80% stenosis in the RCA with MARTÍNEZ flow. In the past, his ejection fraction has been as high as 60%. He did undergo an electrophysiology study with Dr. Correa in the past. At this time, where his ejection fraction fallen below 35%. At that time, he had normal sinus node, AV aravind, and His-Purkinje system. He is noninducible for SVT or ventricular tachycardia. His most recent echocardiogram in April 2017 reveals slightly recovered ejection fraction of 35% to 40%. He has also undergone a left carotid endarterectomy in September [address] Garcia. Mr. Scott presented to [facility] after experiencing heart racing at home. He was lying down, trying to fall asleep when he began to have palpitations and heart racing and reported his heart rate is 159 beats per minute. He also had associated burning and indigestion with heart pounding. Denies any chest pain, shortness of breath, diaphoresis, nausea, or vomiting. He states after he coughs hard, his heart rates normalized into the 70 beats per minute range. He has recently undergone bowel resection on November 05, 2018, for an obstruction. Since then, he has been having frequent loose stools every day. Denies any fevers, chills, nausea, vomiting, abdominal pain, swelling in the extremities, or weight gain. REVIEW OF SYSTEMS: A 12-point review of systems was conducted, is negative except that listed above in the HPI. PAST MEDICAL HISTORY: 1. Coronary artery disease with prior ID as detailed above. 2. Inferior myocardial infarction in 1996. 3. Hyperlipidemia. 4. Hypertension. 5. Vascular disease with bifemoral aortic bypass. 6. Bowel obstruction, status post bowel resection on 11/05/2018. SOCIAL HISTORY: Denies tobacco, alcohol, or illicit drug use. 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 FAMILY HISTORY: Father had coronary artery disease, otherwise unremarkable. PHYSICAL EXAMINATION: VITAL SIGNS: Temperature 97.9, pulse 65, blood pressure 119/58, respirations 15, and oxygen is 98% on room air. GENERAL: The patient is alert and oriented, in no apparent distress. He is good historian. He is resting comfortably during exam. NECK: Supple without jugular venous distention. HEENT: Sclerae are anicteric. Oral mucosa is moist and pink with adequate dentition. LUNGS: Clear to auscultation bilaterally. CARDIOVASCULAR: Heart rate is currently regularly regular. PMI is nondisplaced. Dougherty S1 and S2. No significant murmurs are appreciated. ABDOMEN: Soft and nontender without palpable masses. Hepatojugular reflux is negative. EXTREMITIES: Warm and dry to touch. Well perfused. There is no clubbing, cyanosis, or edema. NEUROLOGIC: Grossly intact and nonfocal. Gait was not assessed. DATABASE: Laboratory: WBC 10.1, hemoglobin 10.9, platelet count 253. Chemistry; potassium 3.7, creatinine 0.64, magnesium 1.8. Troponins were negative. TSH 1.48. Transthoracic echocardiogram on 04/21/2017, LVEF 35% to 40%, mild left ventricular dilatation, inferior and posterior wall thinned, and akinetic compatible with previous infarct, mild mitral valve regurgitation, and mild tricuspid valve regurgitation. Left and right atria were normal size. Left atrium was 3.79 cm. Telemetry and EKG all were personally reviewed and reflect sinus rhythm. There is some nonsustained ventricular tachycardia seen less than 3 seconds in duration. IMPRESSION: 1. Paroxysmal atrial fibrillation, diagnosed after recent bowel resection. 2. Nonsustained ventricular tachycardia with prior negative EP study. Not inducible for ventricular tachycardia. 3. Chronic systolic heart failure, ejection fraction 35% to 40%. 4. Coronary artery disease with prior myocardial infarction. 5. History of possible gastrointestinal bleed after colon resection. 6. Peripheral vascular disease with aortofemoral bypass bilaterally. PLAN: 1. Recommend proceeding with implantable loop recorder, long-term monitoring for both atrial and ventricular arrhythmias given his recent diagnosis of atrial fibrillation and also with tendency for nonsustained ventricular tachycardia in light of cardiomyopathy. 2. Continue beta vu therapy. Currently on Coreg 25 mg p.o. b.i.d. 3. Agree with antiarrhythmic drug suppression for atrial fibrillation. For now, especially in light of his recent surgery and risk for bleeding issues with oral anticoagulation. 4. Consider oral anticoagulation for recurrence of atrial fibrillation seen after amiodarone loading. 5. Implantable loop recorder was discussed with Mr. Scott including risks, benefits, and alternatives. He understands and is willing to proceed, which we performed later today. Thank you for allowing me to participate in the care of this patient. Job ID: [id number]
[2018-11-17] MEDS: Loperamide HCl 2 MG CAP PO SCH ×2 (15:34→17:40)
[2018-11-17 15:55] VITALS: BP 131/60; TEMP 98.4
[2018-11-17] MEDS ORDERED: Amiodarone 200 MG TAB PO SCH ×2 (16:02→21:00)
--- NOTE | 2018-11-17 16:29 | PRG ---
DATE OF SERVICE: 11/17/2018 SUBJECTIVE: Mr. Scott had an outpatient episode of tachycardia and palpitations that historically was very suspicious for atrial fibrillation. The patient also has some nonsustained ventricular tachycardia. Most recent ejection fraction is 35% to 40% ejection fraction with previous inferior infarct. We elected to place a LINQ which was done today successfully. He also be started on amiodarone. He did have some postoperative atrial fibrillation after his recent colon surgery. OBJECTIVE: GENERAL: On examination, now he is doing well. No complaints. VITAL SIGNS: Blood pressure 130/60, pulse 70. LUNGS: Clear. CARDIAC: Normal S1, normal S2. ABDOMEN: Soft, nontender. EXTREMITIES: There is no edema. ASSESSMENT: 1. Coronary artery disease with most recent ejection fraction 35% to 40%. 2. Palpitations, probably atrial fibrillation. 3. Nonsustained ventricular tachycardia. 4. History in the past of a noninducible EP study. PLAN: 1. LINQ was put in place. 2. Start amiodarone 400 mg today, then 200 mg twice a day. Discussed with this gentleman that this is the only medicine that could be really feasibly used. He does have some risk of lung toxicity. If he has severe shortness of breath, he should notify us or go to the emergency room. In addition, it can affect the thyroid. TSH is normal currently. 3. He will maintain on his other cardiac medicines unchanged. Please see the initial notes. He will be released home at this point. We will give him one extra dose of potassium, his potassium 3.7 and then amiodarone, and will be released home. Job ID: [id number]
[2018-11-17] MEDS ORDERED: Potassium Chloride 20 MEQ TAB PO SCH (16:45)
--- NOTE | 2018-11-17 20:55 | OP ---
DATE OF PROCEDURE: 11/17/2018 PROCEDURE PERFORMED: LINQ loop recorder implantation. REASON FOR PROCEDURE: Mr. Scott is a 72-year-old man with history of ischemic cardiomyopathy, borderline reduced LVEF at 35% to 40%, nonsustained ventricular tachycardia, paroxysmal atrial fibrillation, is here for LINQ recorder insertion for future monitoring of both atrial and ventricular arrhythmias to evaluate the atrial fibrillation burden. DESCRIPTION OF PROCEDURE: The patient's chest was prepped, draped, and anesthetized using subcutaneous lidocaine in the fourth intercostal space with a standard [employer] LINQ insertion tool kit. Incision was made over the skin and LINQ recorder was inserted. Surgical glue was used to close the wound and the patient tolerated the procedure well. No complications noted. CONCLUSION: Successful LINQ loop recorder implantation. Job ID: [id number]
[2018-11-17] MEDS ORDERED: Rosuvastatin 20 MG TAB PO SCH (21:00)
[2018-11-18] MEDS ORDERED: Aspirin 81 mg Enteric Coated Tablet PO SCH (09:00)
== END 2018-11-17 17:57 | disposition home or self-care (01) ==
LOC: SCSER 21:44 → 2SW 11-17 00:28
PROVIDERS: ADMIT Internal Medicine; ATTEND Internal Medicine
PROC: 0JH632Z Insertion of Monitoring Device into Chest Subcutaneous Tissue and Fascia, Percutaneous Approach (ICD-10-PCS; principal; 2018-11-16)
PROC: 4A123FZ Monitoring of Cardiac Rhythm, Percutaneous Approach (ICD-10-PCS; 2018-11-16)
DX: R00.0 Tachycardia, unspecified (principal); I10 Essential (primary) hypertension; I25.10 Atherosclerotic heart disease of native coronary artery without angina pectoris; I25.2 Old myocardial infarction; E78.5 Hyperlipidemia, unspecified; R19.7 Diarrhea, unspecified; Z79.82 Long term (current) use of aspirin; Z79.899 Other long term (current) drug therapy; Z88.8 Allergy status to other drugs, medicaments and biological substances
CPT/HCPCS: 33285; 71045; 71275; 80048; 83690; 83735; 84145; 84443; 84484 ×3; 85025; 85379; 93005; 96360; 96361; 97139; 99285; C1764; G0378 ×2; 36415; J2001

== ENCOUNTER 2019-01-02 08:43 | Day surgery (SDC) | payer MEDICARE, BC ==
[2019-01-01 17:30] VITALS: BMI 23.6
[2019-01-02] MEDS ORDERED: Lidocaine 1% w/Epinephrine 1:100K 20 ML VIAL ONE (10:17)
--- NOTE | 2019-01-02 11:49 | OP ---
DATE OF PROCEDURE: 01/02/2019 PROCEDURE PERFORMED: LINQ loop recorder removal. REASON FOR PROCEDURE: Mr. Scott is a 73-year-old man with history of ventricular tachyarrhythmias, cardiomyopathy ischemic, paroxysmal atrial fibrillation, who underwent a loop recorder implant about a month ago and now presenting with erosion of the device, here for a loop recorder extraction. DESCRIPTION OF PROCEDURE: The loop recorder site was inspected, and apart from minor induration, there were no other obvious infectious signs present. The loop recorder though was clearly exposed due to the evident risk of infection with the implantation. Decision was made to extract the device. After sterile prep and subcutaneous lidocaine anesthesia, the loop recorder was removed with simple traction. The wound was left open after irrigation with antibiotic with sterile dressing applied. CONCLUSION: Successful loop recorder explant. At the patient's request, no replacement is made at this time. Job ID: [id number]
== END 2019-01-02 11:30 | disposition home or self-care (01) ==
LOC: CCL 08:43
PROVIDERS: ATTEND Internal Medicine Cardiovascular Disease
PROC: 0JPT32Z Removal of Monitoring Device from Trunk Subcutaneous Tissue and Fascia, Percutaneous Approach (ICD-10-PCS; principal; 2019-01-02)
DX: T82.897A Other specified complication of cardiac prosthetic devices, implants and grafts, initial encounter (principal); I25.5 Ischemic cardiomyopathy; I48.0 Paroxysmal atrial fibrillation
CPT/HCPCS: 33286; J2001; J3490

== ENCOUNTER 2020-02-15 10:09 | Outpatient (CLI) | payer MEDICARE, BC ==
--- NOTE | 2020-02-15 10:46 | RAD ---
XR Lumbar Spine 2 Or 3 View History: Lumbar spine pain Comparison: None. Findings: 5 nonrib-bearing lumbar type vertebrae. Low-grade levoscoliosis of the lumbar spine. Low-grade L5/S1 and L4/L5 degenerative disc space height loss posteriorly. Extensive vascular calcifications. No acute fracture, malalignment or listhesis. Moderate facet arthropathy L4/L5 and L5/S1. Impression: Relatively normal examination of the lumbar spine for age.
== END 2020-02-15 10:10 | disposition home or self-care (01) ==
LOC: BICRAD 10:09
PROVIDERS: ATTEND Family Medicine
DX: M54.5 Low back pain (principal)
CPT/HCPCS: 72100

== ENCOUNTER 2020-04-03 11:39 | Outpatient (CLI) | payer MEDICARE, BC ==
--- NOTE | 2020-04-03 14:42 | MRI ---
MRI Cervical spine without contrast: HISTORY: Intervertebral disc disorder. Thoracic disc herniation. COMPARISON: None FINDINGS: The craniocervical junction is unremarkable. No significant cord signal abnormality. Paravertebral soft tissues have a normal appearance and normal signal intensity. C1-2:There is central canal is patent. C2-3: Small central focal disc protrusion without central canal narrowing. Neural foramina are patent . C3-4: Small central disc protrusion resulting in mild effacement of the ventral subarachnoid space. M ild disc osteophyte complex is also present with facet degenerative changes. Left neural foramen is patent with mild right-sided neural foraminal narrowing. C4-5: There is increased T2-weighted signal intensity seen along the endplates at this level with nor mal signal intensity seen in the intervertebral disc. Findings are felt to most likely be attributable to endplate degenerative changes. Mild broad-based disc osteophyte complex is present wi th tiny central disc protrusion. This narrows the ventral subarachnoid space with slight mass effect on the central anterior aspect of the spinal cord. Facet degenerative changes are present. Mod erate to severe bilateral neural foraminal narrowing is present greater on the right. C5-6: Mild disc osteophyte complex is present with slight effacement of the ventral subarachnoid spac e. Mild to moderate bilateral neural foraminal narrowing is present. C6-7: Mild disc osteophyte complex is present. Right neural foramen is patent. There is mild left-basil ed neural foraminal narrowing. No significant central canal narrowing is present. C7-T1: Small focal disc protrusion resulting in effacement of the central ventral subarachnoid space with very slight mass effect on the anterior central aspect of the spinal cord. Neural foramina are patent. IMPRESSION: Multilevel degenerative changes in the cervical spine with varying degrees of neural foraminal narrow ing as above.
--- NOTE | 2020-04-03 14:50 | MRI ---
Exam: Thoracic spine MRI without contrast HISTORY: Disc herniation Comparison: None FINDINGS: From T1 through T10 there is overall appropriate T1 marrow signal intensity. Intrinsic T1 and T2 hype rintensity at T3 and T4 compatible with hemangiomas of the vertebral body. There is no abnormal signal intensity from T1 through T10 At T11 and T12 is abnormal T1 marrow signal hypointensity with associated T2 and STIR hyperintensity. There is erosion and irregularity involving inferior endplate of T11 and superior endplate of T12. The intervening disc space demonstrates fluid. Sagittal STIR images demonstrate edema in the anterior aspect of the T11-T12 levels. There is also evidence of abnormal soft tissue signal intensity of the T11-T12 disc space. The thoracic cord has a normal size and signal intensity. No cord malacia or cord expansion Appropriate signal intensity of the visualized paraspinal muscles and solid organs. From T1-T2 through T9-T10: There is disc desiccation without significant loss of disc space height. N o posterior disc abnormality. No significant central canal stenosis or significant neural foraminal narrowing At the T11-T12 level there is abnormal signal intensity which effaces the ventral thecal sac. Finding s may be in part due to disc material. Phlegmonous change or an epidural extension of discitis cannot be excluded. Mild central canal stenosis. Moderate bilateral neural foraminal narrowing T12-L1: No significant central canal stenosis or significant neural foraminal narrowing. Conus medull lashonda terminates at the inferior aspect of T12. 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 Smith 04/03/2020 at 2:49 PM Code CR Transcribed Date/Time: 04/03/2020 2:54 PM
== END 2020-04-03 11:40 | disposition home or self-care (01) ==
LOC: MRI 11:39
PROVIDERS: ATTEND Anesthesiology Pain Medicine
DX: M51.24 Other intervertebral disc displacement, thoracic region (principal); M46.24 Osteomyelitis of vertebra, thoracic region; M47.812 Spondylosis without myelopathy or radiculopathy, cervical region; M48.02 Spinal stenosis, cervical region
CPT/HCPCS: 72141; 72146

== ENCOUNTER 2020-05-14 10:07 | Outpatient (CLI) | payer MEDICARE, BC ==
[~2020-05-14 10:07] MED LIST changes: -ISOVUE-370 76%-LOCM 1 ML ONE; -MD-Gastroview 120 ML BOT ONE; +Magnevist 469MG/ML 20 ML VIAL ONE
--- NOTE | 2020-05-14 13:50 | MRI ---
Exam: Thoracic spine MRI without contrast HISTORY: Follow up possible discitis osteomyelitis COMPARISON: 04/03/2020 FINDINGS: Slight progression the overall degree of T1 marrow signal hypointensity involving the T11 a nd T12 vertebral bodies. There is progression of the destructive changes along the endplates at T11-T12. Postcontrast images demonstrate heterogeneous enhancement of the vertebral bodies. This also enhancement involving the posterior aspect of the disc space. There is enhancing predominant paraspinal phlegmon. Enhancement involves the entirety of the T11 vertebral body with extension into both pedicles. Enhancement involves the majority the T12 vertebral body without definite pedicle extension. There does appear to be interval mild collapse of the T11 vertebral body. There may be min imal anterior epidural enhancement at the T11 level. IMPRESSION:: Demonstration of discitis osteomyelitis of the T11 and T12 level. There does appear to be mild loss o f vertebral body height at T11 when compared to the previous examination. There are paraspinal phlegmonous changes. Results study conveyed to Dr. Smith via [employer] connect 05/14/2020 at 1:49 PM Code CR Transcribed Date/Time: 05/14/2020 1:55 PM
== END 2020-05-14 10:08 | disposition home or self-care (01) ==
LOC: MRI 10:07
PROVIDERS: ATTEND Anesthesiology Pain Medicine
DX: M46.43 Discitis, unspecified, cervicothoracic region (principal); M46.24 Osteomyelitis of vertebra, thoracic region
CPT/HCPCS: 72147; A9579

== ENCOUNTER 2020-06-26 11:37 | Outpatient (CLI) | payer MEDICARE, BC ==
[2020-06-26 12:10] LABS: Estimated GFR-MDRD - POC Greater than 90
--- NOTE | 2020-06-26 15:38 | MRI ---
EXAM: MRI Thoracic Spine W WO Con DATE: 06/26/2020 12:00 PM INDICATION: 74-year-old male with history of back pain and discitis osteomyelitis COMPARISON: Prior MR the thoracic spine with contrast dated May 06, 2020 and an MR of the thorac ic spine without contrast dated April 03, 2020. FINDIN cc of [employer] was utilized for the exam. Endplate erosive change and irregularity of the T11-T12 intervertebral disc space is largely similar. Edematous change within the marrow of T11 and T12 vertebral levels persist. The extent of the marrow enhancement has improved from the prior exam. There is less fluid signal intensity seen within the intervertebral disc space than on the prior examination. There is less perivertebral phlegmon present when compared to the prior. No epidural abscess collection is evident. No paraspinal abscess collection is evident. Mild multilevel thoracic spondylosis is similar appearing. Small central inferior disc extrusion seen projecting down to the L1 vertebral level from T12-L1 with mild ventral effacement of the subarachnoid space is stable. IMPRESSION: 1. Improving osteomyelitis and discitis at T11-T12. 2. Stable thoracic spondylosis. There is a stable small central inferior disc ensure and from T12-L1 extending down to the level of the L1 vertebral level is causing mild ventral effacement of the anterior subarachnoid space.
--- NOTE | 2020-06-26 15:44 | CT ---
EXAM: CT Thoracic Spine WO Con DATE: 06/26/2020 1:08 PM INDICATION: History of mid back pain and discitis osteomyelitis at T11-T12 COMPARISON: MR the thoracic spine with contrast dated May 06, 2020 FINDING: There is endplate erosive change and sub-endplate sclerosis consistent with changes of a he aling discitis and osteomyelitis at the T11-T12 intervertebral level. There is mild wedge deformity at T11 likely related to a mild insufficiency wedge fracture. No additional acute fracture is evident . There is diffuse osteopenia. There is scattered degenerative and osteoarthritic change. There is a 3 mm nonobstructing calculus within the left mid kidney. There are severe vascular calcifi cations seen involving the visualized vasculature. Visualized lungs are clear. There is a dual-lead pacemaker. IMPRESSION: 1. End plate erosive change and subendplate sclerosis consistent with healing T11-T12 discitis osteom yelitis. There is mild wedging of the T11 vertebral body likely related to insufficiency wedge compression abnormality. 2. Mild multilevel thoracic spondylosis. 3. Right nephrolithiasis.
== END 2020-06-26 11:38 | disposition home or self-care (01) ==
LOC: MRI 11:37
PROVIDERS: ATTEND Surgery
DX: M54.6 Pain in thoracic spine (principal); N20.0 Calculus of kidney; M47.814 Spondylosis without myelopathy or radiculopathy, thoracic region; M48.54XA Collapsed vertebra, not elsewhere classified, thoracic region, initial encounter for fracture; M46.24 Osteomyelitis of vertebra, thoracic region; M46.44 Discitis, unspecified, thoracic region
CPT/HCPCS: 72128; 72157; 82565

== ENCOUNTER 2023-01-29 16:51 | Inpatient (IN) | payer MEDICARE, BC ==
[2023-01-29 17:55] LABS: #Eosinphils 0.3 thou/uL (0.0-0.7); #Neutrophils 3.4 thou/uL (1.40-6.50); %Basophils 0.4 % (0.0-1.0); %Eosinophils 3.8 % (0.0-10.0); %Lymphocytes 36.7 % (21.0-51.0); %Monocytes 13.1 % (0.0-10.0); %Neutrophils 45.7 % (42.0-75.0); Hemoglobin 12.3 g/dL (14.0-18.0); Mean Corpuscular HGB CONC 32.2 g/dL (32.0-36.0); Mean Corpuscular Hemoglobin 27.6 pg (27.0-31.0); Mean Corpuscular Volume 85.7 fl (78.0-98.0); Mean Platelet Volume 9.9 fL (7.4-10.4); Platelet Count 153 10x3/uL (130-400); RBC Distribution Width 17.7 % (11.5-14.5); Red Blood Cell (RBC) Count 4.46 mill/uL (4.70-6.10); White Blood Cell (WBC) Count 7.5 10x3/uL (4.8-10.8)
[2023-01-29] MEDS ORDERED: Ampicillin/Sulbactam 3 GM in Sodium Chloride 0.9% 100 ML IVPB SCH ×2 (18:00→22:00)
[2023-01-29 18:11] LABS: ALT (SGPT) 20 U/L (8-55); AST (SGOT) 21 U/L (5-34); Albumin 4.1 g/dL (3.4-4.8); Alkaline Phosphatase 83 U/L (40-110); Anion Gap 14 mmol/L (10-20); BUN (Urea Nitrogen) 26 mg/dL (8.4-25.7); Bilirubin, Total 0.4 mg/dL (0.2-1.2); Calc. Creatinine Clearance 0 mL/min (70-130); Calcium 9.2 mg/dL (7.8-10.44); Carbon Dioxide 22 mmol/L (23-31); Chloride 104 mmol/L (98-107); Estimated GFR 55; Globulin 4.4 g/dL (2.4-3.5); Glucose 108 mg/dL (83-110); Potassium 4.3 mmol/L (3.5-5.1); Protein, Total 8.5 g/dL (5.8-8.1); Sodium 136 mmol/L (136-145)
[2023-01-29] MEDS ORDERED: Ondansetron PF 4 MG/2 ML Vial IVP PRN (18:27)
[2023-01-29 18:31] LABS: Bacteria/HPF None Seen HPF (None Seen); Bilirubin Negative (Negative); Blood, Urine Negative (Negative); CAUTI Indications for Culture Fever or rigors; Clarity Clear (Clear); Glucose, Urine (Dipstick) Normal (Negative); Ketone, Urine Negative (Negative); Leukocyte Negative Leu/uL (Negative); Nitrite Negative (Negative); Protein, Urine (Dipstick) Negative (Neg-Trace); RBC/HPF 0-3 HPF (0-3); Specific Gravity, Urine 1.008 (1.002-1.036); Squamous Epithelial None Seen HPF (0-3); Urobilinogen Normal mg/dL (Less than 2); WBC/HPF None Seen HPF (0-3)
[2023-01-29 18:34] LABS: Urine Culture Reflex No No
[2023-01-29] MEDS: Carvedilol 6.25 MG TAB PO SCH (20:58)
[2023-01-29 20:59] VITALS: BMI 23.6
[2023-01-29] MEDS: Losartan 25 MG TAB PO SCH (20:59)
[2023-01-30] MEDS: Ampicillin/Sulbactam 3 GM in Sodium Chloride 0.9% 100 ML IVPB SCH ×2 (00:53→10:46)
[2023-01-30] MEDS: Acetaminophen 325 MG TAB PO PRN ×2 (00:53→20:11)
[2023-01-30 06:55] LABS: #Eosinphils 0.3 thou/uL (0.0-0.7); #Monocytes 0.9 thou/uL (0.11-0.59); #Neutrophils 2.7 thou/uL (1.40-6.50); %Basophils 0.5 % (0.0-1.0); %Eosinophils 4.2 % (0.0-10.0); %Monocytes 13.4 % (0.0-10.0); %Neutrophils 41.6 % (42.0-75.0); Mean Corpuscular HGB CONC 31.8 g/dL (32.0-36.0); Mean Corpuscular Hemoglobin 27.4 pg (27.0-31.0); Mean Corpuscular Volume 86.3 fl (78.0-98.0); Mean Platelet Volume 9.4 fL (7.4-10.4); Platelet Count 122 10x3/uL (130-400); RBC Distribution Width 17.9 % (11.5-14.5); Red Blood Cell (RBC) Count 4.01 mill/uL (4.70-6.10); White Blood Cell (WBC) Count 6.4 10x3/uL (4.8-10.8)
[2023-01-30 07:21] LABS: Anion Gap 12 mmol/L (10-20); BUN (Urea Nitrogen) 25 mg/dL (8.4-25.7); Calc. Creatinine Clearance 66 mL/min (70-130); Calcium 8.6 mg/dL (7.8-10.44); Carbon Dioxide 21 mmol/L (23-31); Chloride 108 mmol/L (98-107); Estimated GFR 83; Glucose 100 mg/dL (83-110); Sodium 137 mmol/L (136-145)
[2023-01-30] MEDS: Aspirin 81 mg Enteric Coated Tablet PO SCH (08:25)
[2023-01-30] MEDS: Carvedilol 6.25 MG TAB PO SCH ×2 (08:25→20:12)
[2023-01-30] MEDS: Apixaban 2.5 MG TAB PO SCH ×2 (08:25→20:13)
[2023-01-30] MEDS: CO Q-10 CAPSULE 100 MG PO SCH (08:26)
[2023-01-30] MEDS: Hydrochlorothiazide 25 MG TAB PO SCH (08:26)
[2023-01-30] MEDS: Multivitamin W/ Minerals 1 TAB PO SCH (08:26)
[2023-01-30] MEDS ORDERED: Potassium Chloride 20 MEQ TAB PO SCH (09:00)
[2023-01-30] MEDS: AMPicillin 2 GM in Sodium Chloride 0.9% 100 ML IVPB SCH ×2 (13:33→16:29)
[2023-01-30] MEDS: cefTRIAXone\\ROCEPHIN 2 GM in Sodium Chloride 0.9% 100 ML IVPB SCH (20:11)
[2023-01-30] MEDS: Losartan 25 MG TAB PO SCH (20:12)
[2023-01-30] MEDS: Rosuvastatin 20 MG TAB PO SCH (20:12)
[2023-01-30] MEDS: Ampicillin 2 GM in Sodium Chloride 0.9% 100 ML IVPB SCH (20:22)
[2023-01-31] MEDS: Ampicillin 2 GM in Sodium Chloride 0.9% 100 ML IVPB SCH ×6 (01:34→21:28)
[2023-01-31 07:29] LABS: Hemoglobin 11.6 g/dL (14.0-18.0); Mean Corpuscular HGB CONC 31.9 g/dL (32.0-36.0); Mean Corpuscular Hemoglobin 27.5 pg (27.0-31.0); Mean Corpuscular Volume 86.3 fl (78.0-98.0); Mean Platelet Volume 9.8 fL (7.4-10.4); Platelet Count 134 10x3/uL (130-400); RBC Distribution Width 18.1 % (11.5-14.5); Red Blood Cell (RBC) Count 4.22 mill/uL (4.70-6.10); White Blood Cell (WBC) Count 5.7 10x3/uL (4.8-10.8)
[2023-01-31 07:34] LABS: Delete Auto Diff?? YES; Manual Diff?? YES
[2023-01-31 07:51] LABS: Anion Gap 13 mmol/L (10-20); BUN (Urea Nitrogen) 14 mg/dL (8.4-25.7); Calc. Creatinine Clearance 70 mL/min (70-130); Calcium 8.8 mg/dL (7.8-10.44); Carbon Dioxide 23 mmol/L (23-31); Chloride 105 mmol/L (98-107); Estimated GFR 88; Glucose 93 mg/dL (83-110); Potassium 4.3 mmol/L (3.5-5.1); Sodium 137 mmol/L (136-145)
[2023-01-31] MEDS: cefTRIAXone\\ROCEPHIN 2 GM in Sodium Chloride 0.9% 100 ML IVPB SCH ×2 (08:18→21:30)
[2023-01-31] MEDS: Aspirin 81 mg Enteric Coated Tablet PO SCH (08:19)
[2023-01-31] MEDS: CO Q-10 CAPSULE 100 MG PO SCH (08:19)
[2023-01-31] MEDS: Carvedilol 6.25 MG TAB PO SCH ×2 (08:19→21:32)
[2023-01-31] MEDS: Potassium Bicarbonate/Cit Ac 20 MEQ TAB PO SCH (08:20)
[2023-01-31] MEDS: diphenhydrAMINE 25 MG CAP PO SCH ×2 (08:20→21:31)
[2023-01-31] MEDS: Multivitamin W/ Minerals 1 TAB PO SCH (08:20)
[2023-01-31] MEDS: Hydrochlorothiazide 25 MG TAB PO SCH (08:20)
[2023-01-31] MEDS: Apixaban 2.5 MG TAB PO SCH ×2 (08:20→21:31)
[2023-01-31 10:04] LABS: Band 6 % (5-11); Monocytes 7 % (0-10); Nucleated RBC (Manual Ct) 1 % (0); Reactive Lymphocytes 1 % (0-10)
[2023-01-31 10:06] LABS: Eosinophils 8 % (0-10); Lymphocytes 38 % (21-51); Neutrophil 40 % (42-75)
[2023-01-31 10:07] LABS: Polychromasia SLIGHT = 2-3 cells (100X) (0-2/hpf)
[2023-01-31 10:08] LABS: Platelet Adequacy Comment Platelets Normal
[2023-01-31] MEDS: Losartan 25 MG TAB PO SCH (21:31)
[2023-01-31] MEDS: Rosuvastatin 20 MG TAB PO SCH (21:33)
[2023-01-31] MEDS: Acetaminophen 325 MG TAB PO PRN (21:33)
[2023-02-01] MEDS: Ampicillin 2 GM in Sodium Chloride 0.9% 100 ML IVPB SCH ×6 (01:04→21:21)
[2023-02-01] MEDS: Potassium Bicarbonate/Cit Ac 20 MEQ TAB PO SCH (08:42)
[2023-02-01] MEDS: Carvedilol 6.25 MG TAB PO SCH ×2 (08:43→21:23)
[2023-02-01] MEDS: CO Q-10 CAPSULE 100 MG PO SCH (08:43)
[2023-02-01] MEDS: Apixaban 2.5 MG TAB PO SCH ×2 (08:43→21:23)
[2023-02-01] MEDS: Aspirin 81 mg Enteric Coated Tablet PO SCH (08:43)
[2023-02-01] MEDS: Hydrochlorothiazide 25 MG TAB PO SCH (08:43)
[2023-02-01] MEDS: Multivitamin W/ Minerals 1 TAB PO SCH (08:43)
[2023-02-01] MEDS: diphenhydrAMINE 25 MG CAP PO SCH ×2 (08:43→21:22)
[2023-02-01] MEDS: cefTRIAXone\\ROCEPHIN 2 GM in Sodium Chloride 0.9% 100 ML IVPB SCH ×2 (08:44→21:22)
[2023-02-01] MEDS ORDERED: Magnesium Oxide 250 MG TAB PO SCH ×2 (10:42→11:00)
[2023-02-01] MEDS: Rosuvastatin 20 MG TAB PO SCH (21:23)
[2023-02-01] MEDS: Losartan 25 MG TAB PO SCH (21:23)
[2023-02-01] MEDS: Acetaminophen 325 MG TAB PO PRN (21:24)
[2023-02-02] MEDS: Ampicillin 2 GM in Sodium Chloride 0.9% 100 ML IVPB SCH ×6 (01:06→20:43)
[2023-02-02] MEDS: Carvedilol 6.25 MG TAB PO SCH ×2 (06:06→20:43)
[2023-02-02] MEDS ORDERED: PROPOFOL 200 MG/20 ML VIAL ONE (07:38)
[2023-02-02] MEDS ORDERED: PHENYLEPHRINE-NS 100 MCG/ML 10 ML SYRINGE ONE (07:38)
[2023-02-02] MEDS: Hydrochlorothiazide 25 MG TAB PO SCH (08:43)
[2023-02-02] MEDS: diphenhydrAMINE 25 MG CAP PO SCH ×2 (08:43→20:43)
[2023-02-02] MEDS: Magnesium Oxide 250 MG TAB PO SCH (08:43)
[2023-02-02] MEDS: Aspirin 81 mg Enteric Coated Tablet PO SCH (08:43)
[2023-02-02] MEDS: Multivitamin W/ Minerals 1 TAB PO SCH (08:43)
[2023-02-02] MEDS: CO Q-10 CAPSULE 100 MG PO SCH (08:43)
[2023-02-02] MEDS: Apixaban 2.5 MG TAB PO SCH (08:43)
[2023-02-02] MEDS: Potassium Bicarbonate/Cit Ac 20 MEQ TAB PO SCH (08:43)
[2023-02-02] MEDS: cefTRIAXone\\ROCEPHIN 2 GM in Sodium Chloride 0.9% 100 ML IVPB SCH ×2 (08:44→20:44)
[2023-02-02 10:15] LABS: Brucella IgM Ab Positive (Negative)
[2023-02-02] MEDS: Rosuvastatin 20 MG TAB PO SCH (20:43)
[2023-02-02] MEDS: Losartan 25 MG TAB PO SCH (20:43)
[2023-02-03] MEDS: Ampicillin 2 GM in Sodium Chloride 0.9% 100 ML IVPB SCH ×6 (01:01→21:46)
[2023-02-03 06:01] LABS: #Eosinphils 0.3 thou/uL (0.0-0.7); #Monocytes 0.8 thou/uL (0.11-0.59); #Neutrophils 2.6 thou/uL (1.40-6.50); %Basophils 0.5 % (0.0-1.0); %Eosinophils 5.1 % (0.0-10.0); %Lymphocytes 37.4 % (21.0-51.0); %Monocytes 12.9 % (0.0-10.0); %Neutrophils 43.9 % (42.0-75.0); Hemoglobin 11.9 g/dL (14.0-18.0); Mean Corpuscular HGB CONC 31.2 g/dL (32.0-36.0); Mean Corpuscular Hemoglobin 27.3 pg (27.0-31.0); Mean Corpuscular Volume 87.4 fl (78.0-98.0); Mean Platelet Volume 9.3 fL (7.4-10.4); Platelet Count 133 10x3/uL (130-400); RBC Distribution Width 17.9 % (11.5-14.5); Red Blood Cell (RBC) Count 4.36 mill/uL (4.70-6.10); White Blood Cell (WBC) Count 5.8 10x3/uL (4.8-10.8)
[2023-02-03 06:27] LABS: Anion Gap 12 mmol/L (10-20); BUN (Urea Nitrogen) 15 mg/dL (8.4-25.7); Calc. Creatinine Clearance 72 mL/min (70-130); Calcium 8.8 mg/dL (7.8-10.44); Carbon Dioxide 23 mmol/L (23-31); Chloride 104 mmol/L (98-107); Estimated GFR 88; Glucose 99 mg/dL (83-110); Sodium 135 mmol/L (136-145)
[2023-02-03] MEDS: cefTRIAXone\\ROCEPHIN 2 GM in Sodium Chloride 0.9% 100 ML IVPB SCH ×2 (08:47→21:46)
[2023-02-03] MEDS: Carvedilol 6.25 MG TAB PO SCH ×2 (08:48→21:45)
[2023-02-03] MEDS: Multivitamin W/ Minerals 1 TAB PO SCH (08:48)
[2023-02-03] MEDS: CO Q-10 CAPSULE 100 MG PO SCH (08:49)
[2023-02-03] MEDS: diphenhydrAMINE 25 MG CAP PO SCH ×2 (08:49→21:46)
[2023-02-03] MEDS: Hydrochlorothiazide 25 MG TAB PO SCH (08:49)
[2023-02-03] MEDS: Potassium Bicarbonate/Cit Ac 20 MEQ TAB PO SCH (08:49)
[2023-02-03] MEDS: Magnesium Oxide 250 MG TAB PO SCH (08:49)
[2023-02-03] MEDS: Aspirin 81 mg Enteric Coated Tablet PO SCH (08:49)
[2023-02-03] MEDS ORDERED: Magnevist 469MG/ML 20 ML VIAL ONE (15:34)
[2023-02-03] MEDS: Acetaminophen 325 MG TAB PO PRN (21:45)
[2023-02-03] MEDS: Losartan 25 MG TAB PO SCH (21:46)
[2023-02-03] MEDS: Rosuvastatin 20 MG TAB PO SCH (21:46)
[2023-02-04] MEDS: Ampicillin 2 GM in Sodium Chloride 0.9% 100 ML IVPB SCH ×6 (00:50→21:06)
[2023-02-04] MEDS: Acetaminophen 325 MG TAB PO PRN (04:09)
[2023-02-04] MEDS: cefTRIAXone\\ROCEPHIN 2 GM in Sodium Chloride 0.9% 100 ML IVPB SCH ×2 (08:30→21:06)
[2023-02-04] MEDS: Multivitamin W/ Minerals 1 TAB PO SCH (08:30)
[2023-02-04] MEDS: Magnesium Oxide 250 MG TAB PO SCH (08:30)
[2023-02-04] MEDS: Carvedilol 6.25 MG TAB PO SCH ×2 (08:31→21:05)
[2023-02-04] MEDS: diphenhydrAMINE 25 MG CAP PO SCH ×2 (08:31→21:05)
[2023-02-04] MEDS: CO Q-10 CAPSULE 100 MG PO SCH (08:31)
[2023-02-04] MEDS: Hydrochlorothiazide 25 MG TAB PO SCH (08:31)
[2023-02-04] MEDS: Aspirin 81 mg Enteric Coated Tablet PO SCH (08:31)
[2023-02-04] MEDS: Potassium Bicarbonate/Cit Ac 20 MEQ TAB PO SCH (08:32)
[2023-02-04] MEDS ORDERED: GoLYTELY 4,000 ml Bottle PO SCH (13:00)
[2023-02-04] MEDS ORDERED: Metoprolol Tartrate 5 MG/5 ML VIAL IVP PRN (19:13)
[2023-02-04] MEDS: Losartan 25 MG TAB PO SCH (21:05)
[2023-02-04] MEDS: Rosuvastatin 20 MG TAB PO SCH (21:05)
[2023-02-04 21:08] LABS: #Eosinphils 0.2 thou/uL (0.0-0.7); #Monocytes 0.7 thou/uL (0.11-0.59); #Neutrophils 2.8 thou/uL (1.40-6.50); %Basophils 0.5 % (0.0-1.0); %Eosinophils 4.2 % (0.0-10.0); %Lymphocytes 34.1 % (21.0-51.0); %Monocytes 12.7 % (0.0-10.0); Hemoglobin 12.6 g/dL (14.0-18.0); Mean Corpuscular HGB CONC 31.7 g/dL (32.0-36.0); Mean Corpuscular Hemoglobin 27.8 pg (27.0-31.0); Mean Corpuscular Volume 87.4 fl (78.0-98.0); Mean Platelet Volume 9.6 fL (7.4-10.4); Platelet Count 120 10x3/uL (130-400); RBC Distribution Width 18.1 % (11.5-14.5); Red Blood Cell (RBC) Count 4.54 mill/uL (4.70-6.10); White Blood Cell (WBC) Count 5.7 10x3/uL (4.8-10.8)
[2023-02-04 21:14] LABS: Anion Gap 10 mmol/L (10-20); BUN (Urea Nitrogen) 8 mg/dL (8.4-25.7); Calc. Creatinine Clearance 74 mL/min (70-130); Carbon Dioxide 29 mmol/L (23-31); Chloride 105 mmol/L (98-107); Estimated GFR 89; Glucose 99 mg/dL (83-110); Magnesium 2.1 mg/dL (1.6-2.6); Potassium 3.6 mmol/L (3.5-5.1); Sodium 140 mmol/L (136-145)
[2023-02-04] MEDS ORDERED: Amiodarone 200 MG TAB PO SCH (21:30)
[2023-02-04] MEDS ORDERED: Amiodarone 450 MG, Admixture Fee 1 EACH in Dextrose 5% in Water 250 ML IVPB PRN (21:30)
[2023-02-04] MEDS ORDERED: Amiodarone 150 MG, Admixture Fee 1 EACH in Dextrose 5% in Water 100 ML IVPB SCH (21:30)
[2023-02-05] MEDS: Ampicillin 2 GM in Sodium Chloride 0.9% 100 ML IVPB SCH ×6 (01:11→20:16)
[2023-02-05] MEDS: Acetaminophen 325 MG TAB PO PRN ×2 (01:17→20:15)
[2023-02-05 04:27] LABS: #Eosinphils 0.2 thou/uL (0.0-0.7); #Monocytes 0.8 thou/uL (0.11-0.59); #Neutrophils 3.5 thou/uL (1.40-6.50); %Basophils 0.5 % (0.0-1.0); %Eosinophils 3.4 % (0.0-10.0); %Neutrophils 55.9 % (42.0-75.0); Hemoglobin 11.7 g/dL (14.0-18.0); Mean Corpuscular HGB CONC 31.5 g/dL (32.0-36.0); Mean Corpuscular Hemoglobin 27.5 pg (27.0-31.0); Mean Corpuscular Volume 87.3 fl (78.0-98.0); Mean Platelet Volume 9.3 fL (7.4-10.4); Platelet Count 132 10x3/uL (130-400); Red Blood Cell (RBC) Count 4.25 mill/uL (4.70-6.10); White Blood Cell (WBC) Count 6.2 10x3/uL (4.8-10.8)
[2023-02-05 04:51] LABS: Anion Gap 11 mmol/L (10-20); BUN (Urea Nitrogen) 8 mg/dL (8.4-25.7); Calc. Creatinine Clearance 71 mL/min (70-130); Calcium 8.7 mg/dL (7.8-10.44); Carbon Dioxide 27 mmol/L (23-31); Chloride 106 mmol/L (98-107); Estimated GFR 88; Glucose 99 mg/dL (83-110); Potassium 3.7 mmol/L (3.5-5.1); Sodium 140 mmol/L (136-145)
[2023-02-05] MEDS ORDERED: Promethazine HCl 25 MG/ML VIAL IM PRN (08:01)
[2023-02-05] MEDS ORDERED: Ondansetron HCl/PF 4 MG/2 ML Vial IVP PRN (08:01)
[2023-02-05] MEDS ORDERED: Lidocaine 1% PF 5 ML VIAL ONE (08:12)
[2023-02-05] MEDS ORDERED: PROPOFOL 200 MG/20 ML VIAL ONE (08:12)
[2023-02-05] MEDS ORDERED: PHENYLEPHRINE-NS 100 MCG/ML 10 ML SYRINGE ONE (08:12)
[2023-02-05] MEDS: Hydrochlorothiazide 25 MG TAB PO SCH (09:26)
[2023-02-05] MEDS: CO Q-10 CAPSULE 100 MG PO SCH (09:26)
[2023-02-05] MEDS: Magnesium Oxide 250 MG TAB PO SCH (09:26)
[2023-02-05] MEDS: Aspirin 81 mg Enteric Coated Tablet PO SCH (09:26)
[2023-02-05] MEDS: Carvedilol 6.25 MG TAB PO SCH ×2 (09:26→20:16)
[2023-02-05] MEDS: Potassium Bicarbonate/Cit Ac 20 MEQ TAB PO SCH (09:26)
[2023-02-05] MEDS: diphenhydrAMINE 25 MG CAP PO SCH ×2 (09:26→20:15)
[2023-02-05] MEDS: Multivitamin W/ Minerals 1 TAB PO SCH (09:26)
[2023-02-05] MEDS: cefTRIAXone\\ROCEPHIN 2 GM in Sodium Chloride 0.9% 100 ML IVPB SCH ×2 (09:27→20:16)
[2023-02-05] MEDS ORDERED: Amiodarone 200 MG TAB PO SCH (10:45)
[2023-02-05] MEDS: Losartan 25 MG TAB PO SCH (20:15)
[2023-02-05] MEDS: Rosuvastatin 20 MG TAB PO SCH (20:15)
[2023-02-05] MEDS: Amiodarone 200 MG TAB PO SCH (20:15)
[2023-02-06] MEDS: Ampicillin 2 GM in Sodium Chloride 0.9% 100 ML IVPB SCH ×6 (01:50→20:10)
[2023-02-06] MEDS: Potassium Bicarbonate/Cit Ac 20 MEQ TAB PO SCH (09:03)
[2023-02-06] MEDS: Magnesium Oxide 250 MG TAB PO SCH (09:04)
[2023-02-06] MEDS: cefTRIAXone\\ROCEPHIN 2 GM in Sodium Chloride 0.9% 100 ML IVPB SCH ×2 (09:04→20:11)
[2023-02-06] MEDS: Aspirin 81 mg Enteric Coated Tablet PO SCH (09:04)
[2023-02-06] MEDS: Multivitamin W/ Minerals 1 TAB PO SCH (09:04)
[2023-02-06] MEDS: Carvedilol 6.25 MG TAB PO SCH ×2 (09:04→20:10)
[2023-02-06] MEDS: CO Q-10 CAPSULE 100 MG PO SCH (09:04)
[2023-02-06] MEDS: Amiodarone 200 MG TAB PO SCH ×2 (09:04→20:10)
[2023-02-06] MEDS: diphenhydrAMINE 25 MG CAP PO SCH ×2 (09:04→20:10)
[2023-02-06] MEDS: Hydrochlorothiazide 25 MG TAB PO SCH (09:04)
[2023-02-06] MEDS: Rosuvastatin 20 MG TAB PO SCH (20:10)
[2023-02-06] MEDS: Losartan 25 MG TAB PO SCH (20:10)
[2023-02-06] MEDS: Acetaminophen 325 MG TAB PO PRN (20:56)
[2023-02-07] MEDS: Ampicillin 2 GM in Sodium Chloride 0.9% 100 ML IVPB SCH ×3 (00:26→08:02)
[2023-02-07] MEDS: cefTRIAXone\\ROCEPHIN 2 GM in Sodium Chloride 0.9% 100 ML IVPB SCH (08:01)
[2023-02-07] MEDS: Multivitamin W/ Minerals 1 TAB PO SCH (08:02)
[2023-02-07] MEDS: CO Q-10 CAPSULE 100 MG PO SCH (08:02)
[2023-02-07] MEDS: Carvedilol 6.25 MG TAB PO SCH (08:02)
[2023-02-07] MEDS: Hydrochlorothiazide 25 MG TAB PO SCH (08:02)
[2023-02-07] MEDS: Aspirin 81 mg Enteric Coated Tablet PO SCH (08:02)
[2023-02-07] MEDS: Magnesium Oxide 250 MG TAB PO SCH (08:02)
[2023-02-07] MEDS: Amiodarone 200 MG TAB PO SCH (08:02)
[2023-02-07] MEDS: Potassium Bicarbonate/Cit Ac 20 MEQ TAB PO SCH (08:02)
[2023-02-07] MEDS: diphenhydrAMINE 25 MG CAP PO SCH (08:02)
[2023-02-07] MEDS ORDERED: Apixaban 5 MG TAB PO SCH (09:00)
[2023-02-07] MEDS: Penicillin G Potassium 4 MILL.UNITS in Sodium Chloride 0.9% 100 ML IVPB SCH ×2 (13:01→16:21)
[2023-02-07 15:03] VITALS: BP 167/58; TEMP 98.4
== END 2023-02-07 17:50 | disposition home health service (06) | DRG 394 ==
LOC: ERS 16:51 → T4-A 17:54 → 2NO 02-04 19:33
PROVIDERS: ADMIT Hospitalist; ATTEND Internal Medicine
PROC: B24BZZ4 Ultrasonography of Heart with Aorta, Transesophageal (ICD-10-PCS; 2023-02-01)
PROC: 02HV33Z Insertion of Infusion Device into Superior Vena Cava, Percutaneous Approach (ICD-10-PCS; 2023-02-01)
PROC: B5181ZA Fluoroscopy of Superior Vena Cava using Low Osmolar Contrast, Guidance (ICD-10-PCS; 2023-02-01)
PROC: B548ZZA Ultrasonography of Superior Vena Cava, Guidance (ICD-10-PCS; 2023-02-01)
PROC: 0DBN8ZX Excision of Sigmoid Colon, Via Natural or Artificial Opening Endoscopic, Diagnostic (ICD-10-PCS; principal; 2023-02-05)
PROC: 0DBL8ZX Excision of Transverse Colon, Via Natural or Artificial Opening Endoscopic, Diagnostic (ICD-10-PCS; 2023-02-05)
DX: K63.5 Polyp of colon (principal); I50.22 Chronic systolic (congestive) heart failure; R78.81 Bacteremia; N17.9 Acute kidney failure, unspecified; T82.7XXA Infection and inflammatory reaction due to other cardiac and vascular devices, implants and grafts, initial encounter; K57.30 Diverticulosis of large intestine without perforation or abscess without bleeding; I48.0 Paroxysmal atrial fibrillation; K64.8 Other hemorrhoids; I73.9 Peripheral vascular disease, unspecified; I25.10 Atherosclerotic heart disease of native coronary artery without angina pectoris; I11.0 Hypertensive heart disease with heart failure; I49.3 Ventricular premature depolarization; E78.00 Pure hypercholesterolemia, unspecified; I49.5 Sick sinus syndrome; I08.3 Combined rheumatic disorders of mitral, aortic and tricuspid valves; I25.2 Old myocardial infarction; Z95.810 Presence of automatic (implantable) cardiac defibrillator; Z79.899 Other long term (current) drug therapy; Z88.8 Allergy status to other drugs, medicaments and biological substances; Z79.82 Long term (current) use of aspirin; Z79.2 Long term (current) use of antibiotics; B95.2 Enterococcus as the cause of diseases classified elsewhere; Y84.8 Other medical procedures as the cause of abnormal reaction of the patient, or of later complication, without mention of misadventure at the time of the procedure
CPT/HCPCS: 36415; 36569; 72157; 74177; 80048; 80053; 81001; 83605; 83735; 83880; 85025; 85652; 86140; 86622; 87040; 87077; 87086; 87149; 87186; 88305; 93005; 93010; 93306; 93312; 96365; A9579; C1751; J0290; J0295; J0696; J1030; J2540; J2704; J3490; Q9967; S0020

== ENCOUNTER 2023-02-12 23:13 | Observation (INO) | payer MEDICARE, BC ==
[2023-02-13 01:40] LABS: #Eosinphils 0.2 thou/uL (0.0-0.7); #Monocytes 0.8 thou/uL (0.11-0.59); #Neutrophils 2.7 thou/uL (1.40-6.50); %Basophils 0.6 % (0.0-1.0); %Eosinophils 3.5 % (0.0-10.0); %Monocytes 15.6 % (0.0-10.0); %Neutrophils 50.1 % (42.0-75.0); Hemoglobin 10.6 g/dL (14.0-18.0); Mean Corpuscular HGB CONC 31.6 g/dL (32.0-36.0); Mean Corpuscular Hemoglobin 27.3 pg (27.0-31.0); Mean Corpuscular Volume 86.3 fl (78.0-98.0); Mean Platelet Volume 9.6 fL (7.4-10.4); Platelet Count 140 10x3/uL (130-400); RBC Distribution Width 17.8 % (11.5-14.5); Red Blood Cell (RBC) Count 3.88 mill/uL (4.70-6.10); White Blood Cell (WBC) Count 5.4 10x3/uL (4.8-10.8)
[2023-02-13 02:04] LABS: ALT (SGPT) 23 U/L (8-55); AST (SGOT) 22 U/L (5-34); Albumin 3.5 g/dL (3.4-4.8); Alkaline Phosphatase 65 U/L (40-110); Anion Gap 12 mmol/L (10-20); BUN (Urea Nitrogen) 16 mg/dL (8.4-25.7); Bilirubin, Total 0.2 mg/dL (0.2-1.2); Calc. Creatinine Clearance 0 mL/min (70-130); Calcium 8.5 mg/dL (7.8-10.44); Carbon Dioxide 23 mmol/L (23-31); Chloride 105 mmol/L (98-107); Estimated GFR 65; Globulin 3.6 g/dL (2.4-3.5); Glucose 115 mg/dL (83-110); Potassium 3.9 mmol/L (3.5-5.1); Protein, Total 7.1 g/dL (5.8-8.1); Sodium 136 mmol/L (136-145)
[2023-02-13] MEDS ORDERED: Acetaminophen 325 MG TAB PO PRN (03:36)
[2023-02-13] MEDS ORDERED: Ondansetron ODT 4 MG TAB PO PRN (03:36)
[2023-02-13] MEDS ORDERED: Senokot S 8.6-50 MG TAB PO PRN (03:36)
[2023-02-13] MEDS ORDERED: PSYLLIUM PO SCH (03:45)
[2023-02-13] MEDS ORDERED: Amiodarone 200 MG TAB PO SCH ×2 (03:45→23:45)
[2023-02-13] MEDS ORDERED: [UNRECOGNIZED DRUG - OTHER] PO SCH (03:45)
[2023-02-13 04:31] VITALS: BMI 24.3
[2023-02-13] MEDS ORDERED: Penicillin G Potassium 5 MILL.UNITS VIAL IVPB SCH (05:00)
[2023-02-13] MEDS ORDERED: Penicillin G Potassium 4 MILL.UNITS in Sodium Chloride 0.9% 100 ML IVPB SCH (06:00)
[2023-02-13] MEDS: Carvedilol 6.25 MG TAB PO SCH ×2 (08:19→21:07)
[2023-02-13] MEDS: Apixaban 5 MG TAB PO SCH ×2 (08:19→21:09)
[2023-02-13] MEDS: Magnesium Oxide 250 MG TAB PO SCH (08:19)
[2023-02-13] MEDS: Aspirin 81 mg Enteric Coated Tablet PO SCH (08:19)
[2023-02-13] MEDS: Hydrochlorothiazide 25 MG TAB PO SCH (08:20)
[2023-02-13] MEDS: Famotidine 20 MG TAB PO SCH (08:20)
[2023-02-13] MEDS: Cholecalciferol 1,000 UNITS (25 MCG) TAB PO SCH (08:20)
[2023-02-13] MEDS: cefTRIAXone (ROCEPHIN) 2 GM VIAL IVPB SCH ×2 (08:20→21:09)
[2023-02-13] MEDS: Multivitamin W/ Minerals 1 TAB PO SCH (08:20)
[2023-02-13] MEDS ORDERED: Potassium Chloride 20 MEQ TAB PO SCH (09:00)
[2023-02-13] MEDS: Sacubitril 49 MG/Valsartan 51 MG TABLET PO SCH ×2 (11:15→21:08)
[2023-02-13] MEDS: Penicillin G Potassium 4 MILL.UNITS in Sodium Chloride 0.9% 100 ML IVPB SCH ×3 (12:25→21:09)
[2023-02-13] MEDS ORDERED: Losartan 25 MG TAB PO SCH (21:00)
[2023-02-13] MEDS ORDERED: Rosuvastatin 20 MG TAB PO SCH (21:00)
[2023-02-13] MEDS ORDERED: Ascorbic Acid 500 mg Chewable Tablet PO SCH (21:00)
[2023-02-14] MEDS: Penicillin G Potassium 4 MILL.UNITS in Sodium Chloride 0.9% 100 ML IVPB SCH ×3 (00:50→08:39)
[2023-02-14 01:37] VITALS: BP 137/60; TEMP 97.7
[2023-02-14 06:58] LABS: #Eosinphils 0.1 thou/uL (0.0-0.7); #Monocytes 0.9 thou/uL (0.11-0.59); #Neutrophils 4.1 thou/uL (1.40-6.50); %Basophils 0.5 % (0.0-1.0); %Eosinophils 1.7 % (0.0-10.0); %Lymphocytes 20.1 % (21.0-51.0); %Monocytes 13.7 % (0.0-10.0); %Neutrophils 63.7 % (42.0-75.0); Hemoglobin 10.9 g/dL (14.0-18.0); Mean Corpuscular HGB CONC 31.1 g/dL (32.0-36.0); Mean Corpuscular Hemoglobin 27.3 pg (27.0-31.0); Mean Platelet Volume 9.7 fL (7.4-10.4); Platelet Count 159 10x3/uL (130-400); RBC Distribution Width 17.7 % (11.5-14.5); Red Blood Cell (RBC) Count 3.99 mill/uL (4.70-6.10); White Blood Cell (WBC) Count 6.4 10x3/uL (4.8-10.8)
[2023-02-14 07:26] LABS: Anion Gap 12 mmol/L (10-20); BUN (Urea Nitrogen) 9 mg/dL (8.4-25.7); Calc. Creatinine Clearance 65 mL/min (70-130); Calcium 8.5 mg/dL (7.8-10.44); Carbon Dioxide 21 mmol/L (23-31); Chloride 107 mmol/L (98-107); Estimated GFR 80; Glucose 96 mg/dL (83-110); Potassium 4.2 mmol/L (3.5-5.1); Sodium 136 mmol/L (136-145)
[2023-02-14] MEDS: Multivitamin W/ Minerals 1 TAB PO SCH (08:39)
[2023-02-14] MEDS: Hydrochlorothiazide 25 MG TAB PO SCH (08:39)
[2023-02-14] MEDS: Sacubitril 49 MG/Valsartan 51 MG TABLET PO SCH (08:39)
[2023-02-14] MEDS: Magnesium Oxide 250 MG TAB PO SCH (08:39)
[2023-02-14] MEDS: Aspirin 81 mg Enteric Coated Tablet PO SCH (08:40)
[2023-02-14] MEDS: Famotidine 20 MG TAB PO SCH (08:40)
[2023-02-14] MEDS: Cholecalciferol 1,000 UNITS (25 MCG) TAB PO SCH (08:40)
[2023-02-14] MEDS: cefTRIAXone (ROCEPHIN) 2 GM VIAL IVPB SCH (08:40)
[2023-02-14] MEDS: Carvedilol 6.25 MG TAB PO SCH (08:40)
[2023-02-14] MEDS: Apixaban 5 MG TAB PO SCH (08:41)
[2023-02-14] MEDS ORDERED: Amiodarone 200 MG TAB PO SCH (09:00)
== END 2023-02-14 10:59 | disposition home health service (06) ==
LOC: ERS 23:13 → T4-A 02-13 03:08
PROVIDERS: ADMIT Student in an Organized Health Care Education/Training Program; ATTEND Internal Medicine
DX: T82.594A Other mechanical complication of infusion catheter, initial encounter (principal); R78.81 Bacteremia; I10 Essential (primary) hypertension; E78.5 Hyperlipidemia, unspecified; I25.10 Atherosclerotic heart disease of native coronary artery without angina pectoris; I48.91 Unspecified atrial fibrillation; Z79.82 Long term (current) use of aspirin; Z79.899 Other long term (current) drug therapy; Z79.01 Long term (current) use of anticoagulants; Z95.0 Presence of cardiac pacemaker; Z88.8 Allergy status to other drugs, medicaments and biological substances; Y83.9 Surgical procedure, unspecified as the cause of abnormal reaction of the patient, or of later complication, without mention of misadventure at the time of the procedure
CPT/HCPCS: 36569; 80048; 80053; 85025 ×2; 96374; 96375; 96376 ×2; 99284; C1751; G0378 ×3; 36415; J0696; J2540; J3490

== ENCOUNTER 2025-06-21 22:10 | Inpatient (IN) | payer MEDICARE, BC ==
[~2025-06-21 22:10] MED LIST changes: +Iopamidol-370 76% 500 ML MDV (1 ML CHARGE) ONE; -Magnevist 469MG/ML 20 ML VIAL ONE
[2025-06-21 22:59] LABS: ALT (SGPT) 38 U/L (Less than 45); AST (SGOT) 46 U/L (11-34); Albumin 3.6 g/dL (3.1-4.5); Alkaline Phosphatase 146 U/L (40-110); Anion Gap 16 mmol/L (10-20); BUN (Urea Nitrogen) 21 mg/dL (8.4-25.7); Bilirubin, Total 1.4 mg/dL (0.3-1.2); Calc. Creatinine Clearance 0 mL/min (70-130); Calcium 8.6 mg/dL (7.8-10.44); Carbon Dioxide 25 mmol/L (23-31); Chloride 102 mmol/L (98-107); Globulin 2.9 g/dL (2.4-3.5); Glucose 106 mg/dL (83-110); Potassium 4.5 mmol/L (3.5-5.1); Sodium 138 mmol/L (136-145)
[2025-06-21 23:38] LABS: #Basophils 0.03 10x3/uL (0.0-0.2); #Eosinophils 0.08 10x3/uL (0.0-0.7); #Monocytes 0.68 10x3/uL (0.11-0.59); #Neutrophils 3.39 10x3/uL (1.40-6.50); %Basophils 0.6 % (0.0-1.0); %Eosinophils 1.5 % (0.0-10.0); %Lymphocytes 21.8 % (21.0-51.0); %Monocytes 12.7 % (0.0-10.0); %Neutrophils 63.2 % (42.0-75.0); Hematocrit 51.5 % (42.0-52.0); Hemoglobin 16.2 g/dL (14.0-18.0); Mean Corpuscular Hemoglobin 27.9 pg (27.0-31.0); Mean Corpuscular Volume 88.8 fL (78.0-98.0); Platelet Count 68 10x3/uL (130-400); Red Blood Cell (RBC) Count 5.80 mill/uL (4.70-6.10); White Blood Cell (WBC) Count 5.36 10x3/uL (4.8-10.8)
[2025-06-21] MEDS ORDERED: Furosemide 40 MG (4 mL) VIAL ONE (23:48)
[2025-06-21 23:50] LABS: Actual Bicarbonate (HCO3a) 20.8 mEq/L (22-28); Analyzer IN Cardio ER; Base Excess (BEa) -1.5 mEq/L (-2.0 to +3.0); CO2 Tension 29.7 mmHg (35.0-45.0); Calcium, Ionized (arterial) 1.12 mmol/L (1.12-1.30); Hematocrit-ABG 51 % (42.0-52.0); Hemoglobin (Hb) 17.2 g/dL (14.0-18.0); O2 Tension (PaO2), arterial 107.9 mmHg (> 60.0); Potassium - ABG Lab 4.23 mmol/L (3.70-5.30); pH, Arterial 7.463 (7.35-7.45)
[2025-06-22 00:22] LABS: Puncture Site Left Brachial artery
[2025-06-22 00:23] LABS: ALV-art Gradient 68.875 mmHg (0-20)
[2025-06-22] MEDS ORDERED: niCARdipine 25 MG/10 ML SDV ONE (02:19)
[2025-06-22 05:14] LABS: #Basophils 0.03 10x3/uL (0.0-0.2); #Eosinophils 0.08 10x3/uL (0.0-0.7); #Monocytes 0.67 10x3/uL (0.11-0.59); #Neutrophils 2.78 10x3/uL (1.40-6.50); %Basophils 0.6 % (0.0-1.0); %Eosinophils 1.6 % (0.0-10.0); %Lymphocytes 30.7 % (21.0-51.0); %Monocytes 13.0 % (0.0-10.0); %Neutrophils 53.9 % (42.0-75.0); Hematocrit 50.9 % (42.0-52.0); Hemoglobin 16.4 g/dL (14.0-18.0); Mean Corpuscular Hemoglobin 28.7 pg (27.0-31.0); Mean Corpuscular Volume 89.1 fL (78.0-98.0); Platelet Count 73 10x3/uL (130-400); Red Blood Cell (RBC) Count 5.71 mill/uL (4.70-6.10); White Blood Cell (WBC) Count 5.15 10x3/uL (4.8-10.8)
[2025-06-22 05:24] LABS: ALT (SGPT) 34 U/L (Less than 45); AST (SGOT) 43 U/L (11-34); Albumin 3.4 g/dL (3.1-4.5); Alkaline Phosphatase 131 U/L (40-110); Anion Gap 15 mmol/L (10-20); BUN (Urea Nitrogen) 19 mg/dL (8.4-25.7); Bilirubin, Total 1.7 mg/dL (0.3-1.2); Calc. Creatinine Clearance 45 mL/min (70-130); Calcium 8.5 mg/dL (7.8-10.44); Carbon Dioxide 23 mmol/L (23-31); Chloride 104 mmol/L (98-107); Globulin 2.8 g/dL (2.4-3.5); Glucose 93 mg/dL (83-110); Magnesium 2.2 mg/dL (1.6-2.6); Potassium 4.0 mmol/L (3.5-5.1); Sodium 138 mmol/L (136-145)
[2025-06-22] MEDS: Furosemide 40 MG (4 mL) VIAL SLOW IVP SCH (06:20)
[2025-06-22] MEDS: Acetaminophen 325 MG TAB PO PRN (07:40)
[2025-06-22] MEDS: Aspirin 81 mg Enteric Coated Tablet PO SCH (08:15)
[2025-06-22] MEDS: Mupirocin 1 GM TUBE NASAL DECOLONIZATION NASAL SCH (08:15)
[2025-06-22] MEDS ORDERED: Enoxaparin 40 MG (0.4 mL) SYRINGE SC SCH (09:00)
[2025-06-22] MEDS ORDERED: Enoxaparin 80 MG (0.8 mL) SYRINGE SC SCH (09:00)
[2025-06-22] MEDS: Rosuvastatin 20 MG TAB PO SCH (20:22)
[2025-06-22] MEDS: Apixaban 5 MG TAB PO SCH (20:23)
[2025-06-22] MEDS: Cholecalciferol 1,000 UNITS (25 MCG) TAB PO SCH (20:23)
[2025-06-22] MEDS: Carvedilol 25 MG TAB PO SCH (23:47)
[2025-06-23] MEDS: Communication Order-Pharmacy FS ONE (07:27)
[2025-06-23] MEDS: CO Q-10 CAPSULE 100 MG PO SCH (08:23)
[2025-06-23] MEDS: Multivit, Therapeutic 1 TAB PO SCH (08:23)
[2025-06-23 08:29] LABS: #Basophils 0.04 10x3/uL (0.0-0.2); #Eosinophils 0.16 10x3/uL (0.0-0.7); #Monocytes 0.78 10x3/uL (0.11-0.59); #Neutrophils 2.83 10x3/uL (1.40-6.50); %Basophils 0.8 % (0.0-1.0); %Eosinophils 3.0 % (0.0-10.0); %Lymphocytes 27.9 % (21.0-51.0); %Monocytes 14.7 % (0.0-10.0); %Neutrophils 53.4 % (42.0-75.0); Hematocrit 50.4 % (42.0-52.0); Hemoglobin 15.8 g/dL (14.0-18.0); Mean Corpuscular Hemoglobin 28.0 pg (27.0-31.0); Mean Corpuscular Volume 89.4 fL (78.0-98.0); Platelet Count 80 10x3/uL (130-400); Red Blood Cell (RBC) Count 5.64 mill/uL (4.70-6.10); White Blood Cell (WBC) Count 5.30 10x3/uL (4.8-10.8)
[2025-06-23 08:39] LABS: Anion Gap 16 mmol/L (10-20); BUN (Urea Nitrogen) 23 mg/dL (8.4-25.7); Calc. Creatinine Clearance 42 mL/min (70-130); Calcium 8.1 mg/dL (7.8-10.44); Carbon Dioxide 24 mmol/L (23-31); Chloride 103 mmol/L (98-107); Glucose 89 mg/dL (83-110); Potassium 3.3 mmol/L (3.5-5.1); Sodium 140 mmol/L (136-145)
[2025-06-23] MEDS: Potassium Bicarbonate/Cit Ac 20 MEQ TAB PO SCH (10:49)
[2025-06-23] MEDS: Preparation H Ointment 28 GM TUBE TOP PRN (20:20)
[2025-06-24] MEDS: Metamucil PACK PO SCH (00:34)
[2025-06-24] MEDS ORDERED: Furosemide 40 MG TAB PO SCH (09:00)
[2025-06-24 12:18] LABS: Anion Gap 16 mmol/L (10-20); BUN (Urea Nitrogen) 18 mg/dL (8.4-25.7); Calc. Creatinine Clearance 57 mL/min (70-130); Calcium 8.3 mg/dL (7.8-10.44); Carbon Dioxide 25 mmol/L (23-31); Chloride 105 mmol/L (98-107); Glucose 55 mg/dL (83-110); Potassium 3.8 mmol/L (3.5-5.1); Sodium 142 mmol/L (136-145)
[2025-06-24] MEDS: Metoprolol Succinate XL 25 MG ER.TAB PO SCH ×2 (18:01→20:17)
[2025-06-25 05:08] LABS: Anion Gap 13 mmol/L (10-20); BUN (Urea Nitrogen) 19 mg/dL (8.4-25.7); Calc. Creatinine Clearance 55 mL/min (70-130); Calcium 8.3 mg/dL (7.8-10.44); Carbon Dioxide 24 mmol/L (23-31); Chloride 107 mmol/L (98-107); Glucose 82 mg/dL (83-110); Potassium 4.0 mmol/L (3.5-5.1); Sodium 140 mmol/L (136-145)
[2025-06-25 05:10] LABS: Hematocrit 51.1 % (42.0-52.0); Hemoglobin 16.4 g/dL (14.0-18.0); Platelet Count 74 10x3/uL (130-400)
[2025-06-25 05:45] VITALS: BMI 25.0
[2025-06-25 07:08] LABS: Magnesium 2.3 mg/dL (1.6-2.6)
[2025-06-25] MEDS: Furosemide 40 MG TAB PO SCH (07:46)
[2025-06-25] MEDS ORDERED: Metoprolol Succinate XL 25 MG ER.TAB PO SCH (09:00)
[2025-06-25] MEDS: Furosemide 40 MG (4 mL) VIAL SLOW IVP SCH ×2 (09:43→14:03)
[2025-06-26 05:51] LABS: Anion Gap 10 mmol/L (10-20); BUN (Urea Nitrogen) 23 mg/dL (8.4-25.7); Calc. Creatinine Clearance 52 mL/min (70-130); Calcium 8.5 mg/dL (7.8-10.44); Carbon Dioxide 24 mmol/L (23-31); Chloride 106 mmol/L (98-107); Glucose 94 mg/dL (83-110); Potassium 3.7 mmol/L (3.5-5.1); Sodium 136 mmol/L (136-145)
[2025-06-26] MEDS: Sacubitril 24MG/Valsartan 26 MG TAB PO SCH (08:58)
[2025-06-26] MEDS: Metamucil PACK PO SCH (08:58)
[2025-06-26] MEDS: Furosemide 40 MG (4 mL) VIAL SLOW IVP SCH (13:28)
[2025-06-26] MEDS ORDERED: Communication Order-Pharmacy FS SCH (14:45)
[2025-06-27 05:18] LABS: #Basophils 0.03 10x3/uL (0.0-0.2); #Eosinophils 0.21 10x3/uL (0.0-0.7); #Monocytes 0.81 10x3/uL (0.11-0.59); #Neutrophils 2.42 10x3/uL (1.40-6.50); %Basophils 0.6 % (0.0-1.0); %Eosinophils 4.2 % (0.0-10.0); %Lymphocytes 30.2 % (21.0-51.0); %Monocytes 16.3 % (0.0-10.0); %Neutrophils 48.7 % (42.0-75.0); Hematocrit 49.5 % (42.0-52.0); Hemoglobin 16.0 g/dL (14.0-18.0); Mean Corpuscular Hemoglobin 28.6 pg (27.0-31.0); Mean Corpuscular Volume 88.6 fL (78.0-98.0); Platelet Count 67 10x3/uL (130-400); Red Blood Cell (RBC) Count 5.59 mill/uL (4.70-6.10); White Blood Cell (WBC) Count 4.97 10x3/uL (4.8-10.8)
[2025-06-27 05:20] LABS: ALT (SGPT) 40 U/L (Less than 45); AST (SGOT) 52 U/L (11-34); Albumin 3.4 g/dL (3.1-4.5); Alkaline Phosphatase 125 U/L (40-110); Anion Gap 17 mmol/L (10-20); BUN (Urea Nitrogen) 26 mg/dL (8.4-25.7); Bilirubin, Total 1.5 mg/dL (0.3-1.2); Calc. Creatinine Clearance 49 mL/min (70-130); Calcium 8.6 mg/dL (7.8-10.44); Carbon Dioxide 20 mmol/L (23-31); Chloride 108 mmol/L (98-107); Globulin 2.9 g/dL (2.4-3.5); Glucose 101 mg/dL (83-110); Potassium 3.5 mmol/L (3.5-5.1); Sodium 141 mmol/L (136-145)
[2025-06-27] MEDS ORDERED: Lidocaine 1% (PF) 30 ML VIAL ONE (07:52)
[2025-06-27] MEDS ORDERED: Nitroglycerin 50 MG/250 ML BOT 0 ML ONE (07:52)
[2025-06-27] MEDS ORDERED: Adenosine 6 mg (2 mL) VIAL ONE ×2 (07:52→09:55)
[2025-06-27] MEDS ORDERED: Heparin 10,000 UNITS/ 10 ML VIAL ONE ×2 (07:52→09:55)
[2025-06-27] MEDS ORDERED: Nitroglycerin 50 MG/250 ML BOT 250 ML ONE (09:55)
[2025-06-27] MEDS ORDERED: Iopamidol 370 76% 100 ML VIAL ONE (13:15)
[2025-06-27] MEDS ORDERED: Nitroglycerin 0.4 MG TAB (25 Tab Bottle) SL PRN (13:39)
[2025-06-27] MEDS: Metamucil PACK PO SCH (17:52)
[2025-06-28 05:07] LABS: ALT (SGPT) 37 U/L (Less than 45); AST (SGOT) 44 U/L (11-34); Albumin 3.3 g/dL (3.1-4.5); Alkaline Phosphatase 125 U/L (40-110); Anion Gap 17 mmol/L (10-20); BUN (Urea Nitrogen) 22 mg/dL (8.4-25.7); Bilirubin, Total 1.6 mg/dL (0.3-1.2); Calc. Creatinine Clearance 46 mL/min (70-130); Calcium 8.6 mg/dL (7.8-10.44); Carbon Dioxide 22 mmol/L (23-31); Chloride 105 mmol/L (98-107); Globulin 3.0 g/dL (2.4-3.5); Glucose 90 mg/dL (83-110); Potassium 3.6 mmol/L (3.5-5.1); Sodium 140 mmol/L (136-145)
[2025-06-28 05:14] LABS: #Basophils 0.04 10x3/uL (0.0-0.2); #Eosinophils 0.16 10x3/uL (0.0-0.7); #Monocytes 0.97 10x3/uL (0.11-0.59); #Neutrophils 2.77 10x3/uL (1.40-6.50); %Basophils 0.7 % (0.0-1.0); %Eosinophils 3.0 % (0.0-10.0); %Lymphocytes 26.6 % (21.0-51.0); %Monocytes 18.0 % (0.0-10.0); %Neutrophils 51.5 % (42.0-75.0); Hematocrit 49.1 % (42.0-52.0); Hemoglobin 15.5 g/dL (14.0-18.0); Mean Corpuscular Hemoglobin 28.1 pg (27.0-31.0); Mean Corpuscular Volume 88.9 fL (78.0-98.0); Platelet Count 67 10x3/uL (130-400); Red Blood Cell (RBC) Count 5.52 mill/uL (4.70-6.10); White Blood Cell (WBC) Count 5.38 10x3/uL (4.8-10.8)
[2025-06-28 08:58] VITALS: BP 103/44; TEMP 97.4
[2025-06-29] MEDS ORDERED: Furosemide 40 MG TAB PO SCH (07:30)
== END 2025-06-28 16:00 | disposition home or self-care (01) | DRG 286 ==
LOC: ERS 22:10 → IMCU/EMU 06-22 01:50 → 2NO 06-26 17:32
PROVIDERS: ADMIT Student in an Organized Health Care Education/Training Program; ATTEND Internal Medicine
PROC: 4A023N6 Measurement of Cardiac Sampling and Pressure, Right Heart, Percutaneous Approach (ICD-10-PCS; principal; 2025-06-22)
PROC: B2111ZZ Fluoroscopy of Multiple Coronary Arteries using Low Osmolar Contrast (ICD-10-PCS; 2025-06-22)
PROC: B2141ZZ Fluoroscopy of Right Heart using Low Osmolar Contrast (ICD-10-PCS; 2025-06-22)
PROC: 3E03329 Introduction of Other Anti-infective into Peripheral Vein, Percutaneous Approach (ICD-10-PCS; 2025-06-22)
PROC: 4A033R1 Measurement of Arterial Saturation, Peripheral, Percutaneous Approach (ICD-10-PCS; 2025-06-22)
PROC: 5A09357 Assistance with Respiratory Ventilation, Less than 24 Consecutive Hours, Continuous Positive Airway Pressure (ICD-10-PCS; 2025-06-22)
DX: I11.0 Hypertensive heart disease with heart failure (principal); I50.23 Acute on chronic systolic (congestive) heart failure; J96.01 Acute respiratory failure with hypoxia; N17.9 Acute kidney failure, unspecified; E87.20 Acidosis, unspecified; I48.0 Paroxysmal atrial fibrillation; I42.0 Dilated cardiomyopathy; I25.10 Atherosclerotic heart disease of native coronary artery without angina pectoris; E78.5 Hyperlipidemia, unspecified; D69.6 Thrombocytopenia, unspecified; Z98.890 Other specified postprocedural states; Z95.0 Presence of cardiac pacemaker; Z87.891 Personal history of nicotine dependence; Z88.8 Allergy status to other drugs, medicaments and biological substances
CPT/HCPCS: 36140; 36415; 36600; 71045; 71275; 74177; 80048; 80053; 82805; 83605; 83735; 83880; 84439; 84443; 84484; 85014; 85018; 85025; 85049; 87040; 93005; 93306; 93458; 93798; 94660; 94760; 96374; 97139; 99152; 99153; 99292; C1725; C1769; C1887; C1894; J0153; J0461; J1644; J1940; J2003; J8499; Q9967

== ENCOUNTER 2025-06-29 21:31 | Inpatient (IN) | payer MEDICARE, BC ==
[2025-06-29 22:22] LABS: #Basophils Less than 0.03 10x3/uL (0.0-0.2); #Eosinophils Less than 0.03 10x3/uL (0.0-0.7); #Monocytes 1.00 10x3/uL (0.11-0.59); #Neutrophils 5.69 10x3/uL (1.40-6.50); %Basophils 0.3 % (0.0-1.0); %Eosinophils 0.3 % (0.0-10.0); %Lymphocytes 6.9 % (21.0-51.0); %Monocytes 13.8 % (0.0-10.0); %Neutrophils 78.4 % (42.0-75.0); Hematocrit 48.5 % (42.0-52.0); Hemoglobin 15.9 g/dL (14.0-18.0); Mean Corpuscular Hemoglobin 27.9 pg (27.0-31.0); Mean Corpuscular Volume 85.2 fL (78.0-98.0); Platelet Count 61 10x3/uL (130-400); Red Blood Cell (RBC) Count 5.69 mill/uL (4.70-6.10); White Blood Cell (WBC) Count 7.25 10x3/uL (4.8-10.8)
[2025-06-29 22:25] LABS: Actual Bicarbonate (HCO3v) 18.5 mEq/L (22-28); Base Excess -3.8 mEq/L (-2.0 to +3.0); Calcium, Ionized (venous) 1.10 mmol/L (1.16-1.32); Chloride (VBG) 101 mmol/L (98-106); Hematocrit-VBG 51 % (42.0-52.0); Hemoglobin (Hb) 17.3 g/dL (12.6-17.4); Potassium (VBG) 5.49 mmol/L (3.70-5.30); Sodium 137 mmol/L (133-146)
[2025-06-29 22:35] LABS: ALT (SGPT) 179 U/L (Less than 45); AST (SGOT) 234 U/L (11-34); Albumin 3.6 g/dL (3.1-4.5); Alkaline Phosphatase 154 U/L (40-110); Anion Gap 21 mmol/L (10-20); BUN (Urea Nitrogen) 27 mg/dL (8.4-25.7); Bilirubin, Total 3.1 mg/dL (0.3-1.2); Calc. Creatinine Clearance 0 mL/min (70-130); Calcium 9.3 mg/dL (7.8-10.44); Carbon Dioxide 18 mmol/L (23-31); Chloride 104 mmol/L (98-107); Globulin 3.2 g/dL (2.4-3.5); Glucose 101 mg/dL (83-110); Potassium 5.0 mmol/L (3.5-5.1); Sodium 138 mmol/L (136-145)
[2025-06-29] MEDS ORDERED: Furosemide 40 MG (4 mL) VIAL ONE (23:36)
[2025-06-30] MEDS ORDERED: Senokot S 8.6-50 MG TAB PO PRN (00:16)
[2025-06-30] MEDS ORDERED: Guaifenesin DM 100-10/5 ML UDCUP PO PRN (00:16)
[2025-06-30] MEDS ORDERED: PHOS-NAK 1 PKT PACK PO PRN (00:30)
[2025-06-30] MEDS ORDERED: Potassium Chloride 20 MEQ in Premix 1 BAG IVPB PRN (00:30)
[2025-06-30] MEDS ORDERED: Magnesium Sulfate In Water 4 GM in Premix 1 BAG IVPB PRN (00:30)
[2025-06-30] MEDS ORDERED: Electrolyte Replacement Protocol 1 EACH FS SCH (00:30)
[2025-06-30 01:36] VITALS: BMI 24.1
[2025-06-30] MEDS: Acetaminophen 325 MG TAB PO PRN (03:22)
[2025-06-30 05:40] LABS: ALT (SGPT) 183 U/L (Less than 45); AST (SGOT) 221 U/L (11-34); Albumin 3.5 g/dL (3.1-4.5); Alkaline Phosphatase 139 U/L (40-110); Anion Gap 21 mmol/L (10-20); BUN (Urea Nitrogen) 28 mg/dL (8.4-25.7); Bilirubin, Total 2.8 mg/dL (0.3-1.2); Calc. Creatinine Clearance 39 mL/min (70-130); Calcium 9.4 mg/dL (7.8-10.44); Carbon Dioxide 23 mmol/L (23-31); Chloride 102 mmol/L (98-107); Globulin 2.9 g/dL (2.4-3.5); Glucose 89 mg/dL (83-110); Potassium 4.8 mmol/L (3.5-5.1); Sodium 141 mmol/L (136-145)
[2025-06-30 05:51] LABS: #Basophils 0.03 10x3/uL (0.0-0.2); #Eosinophils Less than 0.03 10x3/uL (0.0-0.7); #Monocytes 0.91 10x3/uL (0.11-0.59); #Neutrophils 4.04 10x3/uL (1.40-6.50); %Basophils 0.5 % (0.0-1.0); %Eosinophils 0.2 % (0.0-10.0); %Lymphocytes 16.8 % (21.0-51.0); %Monocytes 15.1 % (0.0-10.0); %Neutrophils 67.2 % (42.0-75.0); Hematocrit 49.3 % (42.0-52.0); Hemoglobin 15.9 g/dL (14.0-18.0); Mean Corpuscular Hemoglobin 28.6 pg (27.0-31.0); Mean Corpuscular Volume 88.7 fL (78.0-98.0); Platelet Count 62 10x3/uL (130-400); Red Blood Cell (RBC) Count 5.56 mill/uL (4.70-6.10); White Blood Cell (WBC) Count 6.01 10x3/uL (4.8-10.8)
[2025-06-30] MEDS: Furosemide 40 MG TAB PO SCH (09:18)
[2025-06-30] MEDS: Dapagliflozin Propanediol 10 MG TAB PO SCH (09:18)
[2025-06-30] MEDS: Apixaban 5 MG TAB PO SCH (09:18)
[2025-06-30] MEDS: Floranex 1 GM Packet PO SCH ×2 (12:10→16:50)
[2025-06-30] MEDS: Metamucil PACK PO SCH ×2 (12:10→16:50)
[2025-06-30] MEDS: Metoprolol Succinate XL 25 MG ER.TAB PO SCH (19:59)
[2025-07-01 06:03] LABS: #Basophils 0.03 10x3/uL (0.0-0.2); #Eosinophils 0.12 10x3/uL (0.0-0.7); #Monocytes 0.91 10x3/uL (0.11-0.59); #Neutrophils 2.61 10x3/uL (1.40-6.50); %Basophils 0.6 % (0.0-1.0); %Eosinophils 2.4 % (0.0-10.0); %Lymphocytes 25.8 % (21.0-51.0); %Monocytes 18.3 % (0.0-10.0); %Neutrophils 52.7 % (42.0-75.0); Hematocrit 50.8 % (42.0-52.0); Hemoglobin 16.6 g/dL (14.0-18.0); Mean Corpuscular Hemoglobin 28.5 pg (27.0-31.0); Mean Corpuscular Volume 87.1 fL (78.0-98.0); Platelet Count 56 10x3/uL (130-400); Red Blood Cell (RBC) Count 5.83 mill/uL (4.70-6.10); White Blood Cell (WBC) Count 4.96 10x3/uL (4.8-10.8)
[2025-07-01 06:22] LABS: ALT (SGPT) 190 U/L (Less than 45); AST (SGOT) 217 U/L (11-34); Albumin 3.3 g/dL (3.1-4.5); Alkaline Phosphatase 150 U/L (40-110); Anion Gap 12 mmol/L (10-20); BUN (Urea Nitrogen) 31 mg/dL (8.4-25.7); Bilirubin, Total 2.2 mg/dL (0.3-1.2); Calc. Creatinine Clearance 45 mL/min (70-130); Calcium 8.6 mg/dL (7.8-10.44); Carbon Dioxide 18 mmol/L (23-31); Chloride 106 mmol/L (98-107); Globulin 3.0 g/dL (2.4-3.5); Glucose 78 mg/dL (83-110); Magnesium 2.2 mg/dL (1.6-2.6); Potassium 3.8 mmol/L (3.5-5.1); Sodium 132 mmol/L (136-145)
[2025-07-01] MEDS: Sacubitril 24MG/Valsartan 26 MG TAB PO SCH (21:00)
[2025-07-02 05:09] LABS: ALT (SGPT) 161 U/L (Less than 45); AST (SGOT) 154 U/L (11-34); Albumin 3.2 g/dL (3.1-4.5); Alkaline Phosphatase 159 U/L (40-110); Anion Gap 14 mmol/L (10-20); BUN (Urea Nitrogen) 30 mg/dL (8.4-25.7); Bilirubin, Total 1.8 mg/dL (0.3-1.2); Calc. Creatinine Clearance 53 mL/min (70-130); Calcium 8.2 mg/dL (7.8-10.44); Carbon Dioxide 20 mmol/L (23-31); Chloride 107 mmol/L (98-107); Globulin 3.1 g/dL (2.4-3.5); Glucose 100 mg/dL (83-110); Magnesium 2.0 mg/dL (1.6-2.6); Potassium 3.8 mmol/L (3.5-5.1); Sodium 137 mmol/L (136-145)
[2025-07-02 05:31] LABS: #Basophils 0.04 10x3/uL (0.0-0.2); #Eosinophils 0.14 10x3/uL (0.0-0.7); #Monocytes 0.89 10x3/uL (0.11-0.59); #Neutrophils 2.36 10x3/uL (1.40-6.50); %Basophils 0.9 % (0.0-1.0); %Eosinophils 3.1 % (0.0-10.0); %Lymphocytes 23.0 % (21.0-51.0); %Monocytes 19.9 % (0.0-10.0); %Neutrophils 52.9 % (42.0-75.0); Hematocrit 49.9 % (42.0-52.0); Hemoglobin 15.4 g/dL (14.0-18.0); Mean Corpuscular Hemoglobin 28.1 pg (27.0-31.0); Mean Corpuscular Volume 90.9 fL (78.0-98.0); Platelet Count 70 10x3/uL (130-400); Red Blood Cell (RBC) Count 5.49 mill/uL (4.70-6.10); White Blood Cell (WBC) Count 4.47 10x3/uL (4.8-10.8)
[2025-07-02] MEDS: Spironolactone 25 MG TAB PO SCH (08:52)
[2025-07-02] MEDS: Furosemide 40 MG (4 mL) VIAL SLOW IVP SCH (15:33)
[2025-07-02] MEDS: Mometasone 200 MCG/Formoterol 5 MCG 120 PUFF INHALER INH SCH (19:39)
[2025-07-02] MEDS: Calcium Carbonate 500 MG ChewTAB PO PRN (23:34)
[2025-07-03 05:24] LABS: #Basophils 0.03 10x3/uL (0.0-0.2); #Eosinophils 0.21 10x3/uL (0.0-0.7); #Monocytes 0.77 10x3/uL (0.11-0.59); #Neutrophils 2.15 10x3/uL (1.40-6.50); %Basophils 0.7 % (0.0-1.0); %Eosinophils 4.7 % (0.0-10.0); %Lymphocytes 28.8 % (21.0-51.0); %Monocytes 17.3 % (0.0-10.0); %Neutrophils 48.3 % (42.0-75.0); Hematocrit 47.4 % (42.0-52.0); Hemoglobin 14.9 g/dL (14.0-18.0); Mean Corpuscular Hemoglobin 28.1 pg (27.0-31.0); Mean Corpuscular Volume 89.3 fL (78.0-98.0); Platelet Count 66 10x3/uL (130-400); Red Blood Cell (RBC) Count 5.31 mill/uL (4.70-6.10); White Blood Cell (WBC) Count 4.45 10x3/uL (4.8-10.8)
[2025-07-03 05:28] LABS: ALT (SGPT) 123 U/L (Less than 45); AST (SGOT) 101 U/L (11-34); Albumin 3.2 g/dL (3.1-4.5); Alkaline Phosphatase 144 U/L (40-110); Anion Gap 12 mmol/L (10-20); BUN (Urea Nitrogen) 23 mg/dL (8.4-25.7); Bilirubin, Total 2.2 mg/dL (0.3-1.2); Calc. Creatinine Clearance 58 mL/min (70-130); Calcium 8.6 mg/dL (7.8-10.44); Carbon Dioxide 25 mmol/L (23-31); Chloride 106 mmol/L (98-107); Globulin 2.9 g/dL (2.4-3.5); Glucose 84 mg/dL (83-110); Potassium 2.8 mmol/L (3.5-5.1); Sodium 140 mmol/L (136-145)
[2025-07-03] MEDS: Mometasone 200 MCG/Formoterol 5 MCG 120 PUFF INHALER INH SCH (06:42)
[2025-07-04 04:39] LABS: ALT (SGPT) 103 U/L (Less than 45); AST (SGOT) 73 U/L (11-34); Albumin 3.3 g/dL (3.1-4.5); Alkaline Phosphatase 141 U/L (40-110); Anion Gap 14 mmol/L (10-20); BUN (Urea Nitrogen) 22 mg/dL (8.4-25.7); Bilirubin, Total 1.7 mg/dL (0.3-1.2); Calc. Creatinine Clearance 52 mL/min (70-130); Calcium 8.8 mg/dL (7.8-10.44); Carbon Dioxide 26 mmol/L (23-31); Chloride 106 mmol/L (98-107); Globulin 3.0 g/dL (2.4-3.5); Glucose 135 mg/dL (83-110); Potassium 3.3 mmol/L (3.5-5.1); Sodium 143 mmol/L (136-145)
[2025-07-04 09:26] LABS: Potassium 3.7 mmol/L (3.5-5.1)
[2025-07-04] MEDS ORDERED: Furosemide 20 MG TAB PO SCH (10:30)
[2025-07-04] MEDS: Melatonin 3 MG TAB PO PRN (20:10)
[2025-07-05 04:14] VITALS: TEMP 97.5
[2025-07-05 04:57] LABS: #Basophils Less than 0.03 10x3/uL (0.0-0.2); #Eosinophils 0.24 10x3/uL (0.0-0.7); #Monocytes 0.70 10x3/uL (0.11-0.59); #Neutrophils 2.27 10x3/uL (1.40-6.50); %Basophils 0.4 % (0.0-1.0); %Eosinophils 5.3 % (0.0-10.0); %Lymphocytes 27.8 % (21.0-51.0); %Monocytes 15.6 % (0.0-10.0); %Neutrophils 50.7 % (42.0-75.0); Hematocrit 49.5 % (42.0-52.0); Hemoglobin 15.4 g/dL (14.0-18.0); Mean Corpuscular Hemoglobin 27.6 pg (27.0-31.0); Mean Corpuscular Volume 88.9 fL (78.0-98.0); Platelet Count 83 10x3/uL (130-400); Red Blood Cell (RBC) Count 5.57 mill/uL (4.70-6.10); White Blood Cell (WBC) Count 4.49 10x3/uL (4.8-10.8)
[2025-07-05 04:59] LABS: ALT (SGPT) 87 U/L (Less than 45); AST (SGOT) 65 U/L (11-34); Albumin 3.4 g/dL (3.1-4.5); Alkaline Phosphatase 146 U/L (40-110); Anion Gap 13 mmol/L (10-20); BUN (Urea Nitrogen) 20 mg/dL (8.4-25.7); Bilirubin, Total 1.8 mg/dL (0.3-1.2); Calc. Creatinine Clearance 66 mL/min (70-130); Calcium 8.6 mg/dL (7.8-10.44); Carbon Dioxide 26 mmol/L (23-31); Chloride 105 mmol/L (98-107); Globulin 3.1 g/dL (2.4-3.5); Glucose 92 mg/dL (83-110); Potassium 3.7 mmol/L (3.5-5.1); Sodium 140 mmol/L (136-145)
[2025-07-05 08:51] VITALS: BP 112/64
[2025-07-05] MEDS: Spironolactone 25 MG TAB PO SCH (08:56)
[2025-07-05] MEDS: Furosemide 20 MG TAB PO SCH (12:49)
== END 2025-07-05 15:50 | disposition home or self-care (01) | DRG 291 ==
LOC: ERS 21:31 → 2NO 06-30 00:16 → OBSVTOIN 06-30 11:16
PROVIDERS: ADMIT Internal Medicine; ATTEND Internal Medicine
DX: I13.0 Hypertensive heart and chronic kidney disease with heart failure and stage 1 through stage 4 chronic kidney disease, or unspecified chronic kidney disease (principal); I50.23 Acute on chronic systolic (congestive) heart failure; J96.01 Acute respiratory failure with hypoxia; N17.9 Acute kidney failure, unspecified; I27.20 Pulmonary hypertension, unspecified; I42.9 Cardiomyopathy, unspecified; I25.10 Atherosclerotic heart disease of native coronary artery without angina pectoris; I73.9 Peripheral vascular disease, unspecified; E78.5 Hyperlipidemia, unspecified; N18.30 Chronic kidney disease, stage 3 unspecified; I48.0 Paroxysmal atrial fibrillation; D69.6 Thrombocytopenia, unspecified; Z88.8 Allergy status to other drugs, medicaments and biological substances; Z95.810 Presence of automatic (implantable) cardiac defibrillator; Z98.890 Other specified postprocedural states; Z79.899 Other long term (current) drug therapy; Z79.82 Long term (current) use of aspirin; Z87.891 Personal history of nicotine dependence; I25.2 Old myocardial infarction; Z82.49 Family history of ischemic heart disease and other diseases of the circulatory system
CPT/HCPCS: 36415; 71045; 80053; 82805; 83735; 83880; 84484; 85025; 93005; 93798; 94664; 94760; 96374; G0378; J1940; J8499